=== PATIENT | female | born 1980 | race Caucasian/White ===

== ENCOUNTER → 2017-09-19 10:29 | Outpatient (POV) | payer OTHER, SELFPAY ==
[2017-09-19 11:53] LABS: Basophils % 0.4 % (0.1-2.0); Eosinophils # 0.1 K/mm3 (0.0-0.4); Eosinophils % 1.6 % (0.1-12.0); Hematocrit 45.4 % (37.0-47.0); Hemoglobin 14.8 g/dL (12.2-16.2); Lymphocytes # 1.7 K/mm3 (0.7-4.5); Lymphocytes % 22.2 K/mm3 (10-50); Mean Corpuscular HGB Conc 32.5 g/dL (31.8-35.4); Mean Corpuscular Hemoglobin 31.9 pg (27.0-31.2); Mean Corpuscular Volume 97.9 fl (81-99); Mean Platelet Volume 8.8 fl (7.4-10.4); Monocytes # 0.4 K/mm3 (0.1-1.0); Monocytes % 5.3 % (1.7-9.3); Neutrophils # 5.4 K/mm3 (1.8-7.8); Neutrophils % 70.4 % (37.0-80.0); Platelet Count 205 K/mm3 (142-424); Red Blood Count 4.63 M/mm3 (4.20-5.40); Red Cell Distribution Width 12.1 % (11.5-17.5); White Blood Count 7.7 K/mm3 (4.8-10.8)
[2017-09-19 12:56] LABS: Erythrocyte Sedimentation Rate 4 mm/hr (0-20)
[2017-09-19 14:03] LABS: Alanine Aminotransferase 21 U/L (12-78); Albumin Level 4.2 gm/dL (3.4-5.0); Albumin/Globulin Ratio 1.4 (1.1-1.8); Alkaline Phosphatase 58 U/L (46-116); Amylase 72 U/L (25-125); Anion Gap 12.5 mEq/L (5-15); Aspartate Amino Transferase 14 U/L (15-37); Bilirubin,Total 0.3 mg/dL (0.2-1.0); Blood Urea Nitrogen 7 mg/dL (7-18); Calcium 8.8 mg/dL (8.5-10.1); Carbon Dioxide 26 mmol/L (21.0-32.0); Chloride 103 mmol/L (98-107); Creatinine,Serum 0.65 mg/dL (0.55-1.02); Estimated Glomerular Filt Rate 104 ml/min (>60); Ferritin 55 ng/mL (8-388); GFR (African American) 126 ML/MIN (>60); Globulin 2.9 gm/dl (1.3-3.2); Glucose 104 mg/dL (74-106); Lipase 136 u/L (73-393); Potassium 4.5 mmoL/L (3.5-5.1); Sodium 137 mmol/L (136-145); Total Protein,Serum 7.1 gm/dL (6.4-8.2)
[2017-09-19 14:04] LABS: C-Reactive Protein < 0.2 mg/L (0.0-0.9)
[2017-09-20 08:23] LABS: Iron 69 ug/dL (27-159); UIBC 278 ug/dL (131-425)
[2017-09-21 18:18] LABS: Iron Saturation 20 % (15-55); Vitamin B12 241 pg/mL (232-1245); Vitamin D 25 Hydroxy 25.9 ng/mL (30.0-100.0)
== END ==
PROVIDERS: Family Provider Emergency Medicine; Visit Provider Nurse Practitioner Acute Care
DX: R19.7 Diarrhea, unspecified (principal); R10.9 Unspecified abdominal pain; R14.0 Abdominal distension (gaseous)
CPT/HCPCS: 36415; 80053; 82150; 82607; 82652; 82728; 83550; 83690; 85025; 85651; 86140

== ENCOUNTER → 2017-09-22 08:56 | Outpatient (CLI) | payer OTHER, SELFPAY ==
--- NOTE | 2017-09-22 09:01 | US_ITS ---
US abdomen limited: HISTORY: Vomiting and abdominal pain ITS.REASON: ABD PAIN, BLOATING ORDERING PHYSICIAN: Carley Diego PATIENT AGE: 36 years COMPARISON: None FINDINGS: PANCREAS: Unremarkable. No obvious mass or abnormal fluid collection. No ductal dilatation LIVER: No focal liver lesions demonstrated. Homogeneous echogenicity. No intrahepatic biliary ductal dilatation evident RIGHT KIDNEY: Unremarkable. Normal size and echogenicity. No hydronephrosis GALLBLADDER: No gallstones, gallbladder wall thickening, pericholecystic fluid, or biliary dilatation. IMPRESSION: Negative gallbladder/right upper quadrant ultrasound
== END ==
PROVIDERS: Family Provider Emergency Medicine; PCP Nurse Practitioner Acute Care; Visit Provider Nurse Practitioner Acute Care
DX: R10.9 Unspecified abdominal pain (principal); R14.0 Abdominal distension (gaseous)
CPT/HCPCS: 76705

== ENCOUNTER → 2018-01-18 14:19 | Outpatient (CLI) | payer OTHER, SELFPAY ==
[2018-01-18 14:49] LABS: Basophils % 0.5 % (0.1-2.0); Eosinophils # 0.3 K/mm3 (0.0-0.4); Eosinophils % 3.8 % (0.1-12.0); Hematocrit 46.6 % (37.0-47.0); Hemoglobin 14.7 g/dL (12.2-16.2); Lymphocytes # 1.7 K/mm3 (0.7-4.5); Lymphocytes % 21.5 K/mm3 (10-50); Mean Corpuscular HGB Conc 31.7 g/dL (31.8-35.4); Mean Corpuscular Hemoglobin 31.5 pg (27.0-31.2); Mean Corpuscular Volume 99.5 fl (81-99); Mean Platelet Volume 9.8 fl (7.4-10.4); Monocytes # 0.5 K/mm3 (0.1-1.0); Monocytes % 6.2 % (1.7-9.3); Neutrophils # 5.3 K/mm3 (1.8-7.8); Platelet Count 186 K/mm3 (142-424); Red Blood Count 4.68 M/mm3 (4.20-5.40); Red Cell Distribution Width 12.1 % (11.5-17.5); White Blood Count 7.9 K/mm3 (4.8-10.8)
[2018-01-18 15:58] LABS: Erythrocyte Sedimentation Rate 5 mm/hr (0-20)
[2018-01-18 17:07] LABS: Alanine Aminotransferase 20 U/L (12-78); Albumin Level 4.4 gm/dL (3.4-5.0); Albumin/Globulin Ratio 1.6 (1.1-1.8); Alkaline Phosphatase 63 U/L (46-116); Anion Gap 14.3 mEq/L (5-15); Aspartate Amino Transferase 13 U/L (15-37); Bilirubin,Total 0.6 mg/dL (0.2-1.0); Blood Urea Nitrogen 9 mg/dL (7-18); Calcium 9.1 mg/dL (8.5-10.1); Carbon Dioxide 27 mmol/L (21.0-32.0); Chloride 103 mmol/L (98-107); Creatinine,Serum 0.62 mg/dL (0.55-1.02); Estimated Glomerular Filt Rate 110 ml/min (>60); Free Thyroxine Index 3.3 ug/dL (5.93-13.13); GFR (African American) 133 ML/MIN (>60); Globulin 2.7 gm/dl (1.3-3.2); Glucose 89 mg/dL (74-106); Potassium 4.3 mmoL/L (3.5-5.1); Sodium 140 mmol/L (136-145); T4 (Thyroxine) 9.4 ug/dl (4.7-13.3); Thyroid Stimulating Hormone 0.37 uIU/ml (0.358-3.740); Total Protein,Serum 7.1 gm/dL (6.4-8.2); Triiodothryronine (T3) Uptake 35 % (31-39); Uric Acid 2.4 mg/dL (2.6-7.2)
[2018-01-18 17:08] LABS: C-Reactive Protein < 0.2 mg/L (0.0-0.9)
[2018-01-20 11:21] LABS: Anti-Centromere B Antibodies <0.2 AI (0.0-0.9); Anti-Jo-1 <0.2 AI (0.0-0.9); Anti-Smith Antibody <0.2 AI (0.0-0.9); Antichromatin Antibodies <0.2 AI (0.0-0.9); Antiscleroderma-70 Antibodies <0.2 AI (0.0-0.9); RNP Antibodies 0.6 AI (0.0-0.9); Sjogren's Anti-SS-A <0.2 AI (0.0-0.9); Sjogren's Anti-SS-B <0.2 AI (0.0-0.9)
[2018-01-20 14:16] LABS: PTT-LA 33.3 sec (0.0-51.9)
[2018-01-20 15:46] LABS: Anti-DNA (DS) Ab Qn 1 IU/mL (0-9); RA Latex Turbid. <10.0 IU/mL (0.0-13.9); dRVVT 34.1 sec (0.0-47.0)
[2018-01-22 05:04] LABS: Anti-Cyclic Citrullinated Pept 6 units (0-19)
[2018-01-24 10:02] LABS: Antinuclear Antibodies, IFA Negative (.); Lupus Reflex Interpretation Comment: (.)
== END ==
PROVIDERS: Visit Provider Physician Assistant
DX: R50.9 Fever, unspecified (principal); M25.50 Pain in unspecified joint
CPT/HCPCS: 36415; 80053; 84436; 84443; 84479; 84550; 85025; 85613; 85651; 86038; 86140; 86200; 86431

== ENCOUNTER → 2018-08-22 12:45 | Outpatient (CLI) | payer OTHER, SELFPAY ==
--- NOTE | 2018-08-22 | US_ITS ---
MM Dig mamm BI DX w/CAD, US breast RT complete, US breast LT complete THESE REPORTS ARE DELAYED WAITING ON OUTSIDE FILMS WHICH WERE SENT FOR FOR COMPARISON AND ARE NOT MADE AT THE TIME OF THIS READING. INDICATION: Palpable nodule in the 7:00 region of the right breast ORDERING PHYSICIAN: Arron Calero MD PATIENT AGE: 37 years COMPARISON: None TECHNIQUE: Bilateral diagnostic mammogram with bilateral breast ultrasound FINDINGS: There is very dense fiber glandular tissue which decreases the sensitivity of mammography. Right breast: Dense fibroglandular tissue. A marker is placed along the 7:00 region of the right breast where there is reported palpable abnormality. No discrete mammographic abnormality is evident. No malignant appearing microcalcification. Faint nodularity is noted in the inferior aspect of the right breast on the MLO view at 8 mm. This however does appear to compress out on the spot compression view. Right breast ultrasound: There is an 8 x 8 mm well circumscribed hypoechoic nodule in the 7:00 region of the right breast corresponding to the palpable abnormality. This does contain some internal echoes. This is parallel to the chest wall and there is enhanced through transmission of sound. This may represent a fibroadenoma. Left breast: Asymmetric density is present in the upper portion of the left breast. This does not completely compress out on the spot compression view but could very well represent fibroglandular tissue not readily apparent on the cc view or X CC view. Old films were requested to compare this area but have not been made available. Left breast ultrasound: There is an ill-defined hypoechoic area at 2:00 6 x 3 mm. This is not well demonstrated in both the transverse and longitudinal dimension and could only represent fibroglandular tissue. Additional similar-appearing areas noted at 10:00 5 x 4 mm and may be due to, a cystic region versus fibroglandular tissue. No malignant appearing mass is evident. There are small nodes in the axilla. IMPRESSION: 8mm well circumscribed hypoechoic nodule at 7:00 and may represent a fibroadenoma. Ultrasound-guided core biopsy suggested for confirmation. This is probably too superficial for mammotome biopsy only 2 mm deep to the skin surface Asymmetric upper aspect of the left breast which may be due to fibroglandular tissue. Strongly recommend patient obtain old films for comparison and an addendum may be given. If old films are not available then would recommend a 6 month follow-up. Indeterminate sonographic areas also noted probably due to fibroglandular tissue. Suggest 6 month follow-up BI-RADS Category: 4 Suspicious Abnormality-Biopsy Considered right breast, low suspicion for malignancy. BI-RADS Category 3, probably benign findings left breast Recommendations: 1. Ultrasound-guided core biopsy of the right breast. 2. Obtain old films for comparison to the left breast. 3. Six-month follow-up mammogram and ultrasound of the left breast (A letter has been sent to the patient regarding results of the study.)
== END ==
PROVIDERS: PCP Physician Assistant; Visit Provider Nurse Practitioner Obstetrics & Gynecology
DX: N60.19 Diffuse cystic mastopathy of unspecified breast (principal); N64.4 Mastodynia
CPT/HCPCS: 76641; 77066

== ENCOUNTER → 2018-09-06 12:20 | Outpatient (CLI) | payer OTHER, SELFPAY ==
--- NOTE | 2018-09-06 | US_ITS ---
FNA w guidance, US breast RT complete HISTORY: Abnormal right breast ultrasound showing a nodule at 7:00 region. ITS.REASON: US Guided Core Bx Right Breast ORDERING PHYSICIAN: Arron Calero MD PATIENT AGE: 37 years COMPARISON: 08/22/2018 Prebiopsy ultrasound: Ultrasound performed of the right breast confirms or cystic presence of a oval nodule in the subcutaneous region at 7:00 measuring 7 x 9 x 4 mm.. Biopsy planning was performed and appropriate area marked for needle insertion. TECHNIQUE: Following obtaining informed consent, using aseptic technique and local anesthesia with buffered lidocaine, fine-needle aspiration was performed of the nodule of interest using sonographic guidance. 3 passes were made into the nodule . 2 passes were made with a 21-gauge needle and one pass was made with a 25-gauge needle. Specimen was given to cytology. The patient tolerated the procedure well without evidence of immediate complications and left the ultrasound suite in stable condition. CYTOLOGY:Pending IMPRESSION: Uneventful ultrasound-guided fine-needle aspiration of right breast nodule. Cytology is pending
== END ==
PROVIDERS: PCP Physician Assistant; Visit Provider Nurse Practitioner Obstetrics & Gynecology
DX: N60.19 Diffuse cystic mastopathy of unspecified breast (principal); N64.4 Mastodynia
CPT/HCPCS: 10005; 76641

== ENCOUNTER → 2019-03-12 12:43 | Outpatient (CLI) | payer OTHER, SELFPAY ==
--- NOTE | 2019-03-12 12:44 | MM_ITS ---
MM Dig mamm BI DX w/CAD, US breast RT complete Ultrasound left complete INDICATION: 6 month follow-up abnormal mammogram and ultrasound ORDERING PHYSICIAN: Arron Calero MD PATIENT AGE: 38 years COMPARISON: 08/22/2018, 01/03/2015, 09/06/2018 TECHNIQUE: Routine images obtained with spot compression views and bilateral breast ultrasound FINDINGS: There is very dense fibroglandular tissue which decreases the sensitivity of mammography. Right breast: No discrete mass or malignant appearing microcalcification. Right breast ultrasound: Hypoechoic nodule at 6:00 with through transmission of sound suggesting a small cyst. No change in the solid appearing 8 x 4 mm nodule in the subcutaneous region at 7:00. Fine-needle aspiration was performed of this nodule showing his represent a fibroadenoma. This has a somewhat lobular contour along its inferior margin but could be related to post biopsy changes. Continued six-month sonographic follow-up is suggested. Left breast: There is asymmetric density in the superior aspect of left breast in the axillary region. Asymmetry inferior left breast. No malignant appearing microcalcifications. Left breast ultrasound: Nonspecific hypoechoic area at 10:00 near the nipple at 4 mm with some enhanced through transmission of sound may be related to some fibrocystic change and appear stable.. Previously noted nodularity in 2:00 not readily demonstrated on today's exam. IMPRESSION: Benign findings. No convincing evidence of malignancy. There is very dense fibroglandular tissue which decreases the sensitivity of mammography and correlation with physical exam is paramount. The 8 x 4 mm nodule at 7:00 is once again noted in the right breast was some nodularity along the inferior margin which could be due to postbiopsy changes. This was previously biopsied with FNA results of fibroadenoma. Would recommend a 6 month sonographic follow-up to confirm stability of the nodularity inferiorly. No change in the left breast. Suggest continued six-month mammographic and sonographic follow-up to confirm one-year stability BI-RADS Category: 3 Probably Benign Finding Short Term Follow-up RECOMMENDED FOLLOW-UP: 6M - 6 MONTH FOLLOW-UP (A letter has been sent to the patient regarding results of the study.)
== END ==
PROVIDERS: PCP Physician Assistant; Visit Provider Nurse Practitioner Obstetrics & Gynecology
DX: R92.8 Other abnormal and inconclusive findings on diagnostic imaging of breast (principal)
CPT/HCPCS: 77066

== ENCOUNTER → 2019-03-16 08:54 | Outpatient (CLI) | payer OTHER, SELFPAY ==
--- NOTE | 2019-03-16 09:01 | US_ITS ---
US breast LT complete COMPARISON: Ultrasound left breast 08/22/2018 HISTORY: Markedly dense breast parenchyma on mammogram with question of asymmetric density TECHNIQUE: Ultrasound survey left breast FINDINGS: There is markedly prominent heterogenic echogenicity of the breast parenchyma throughout. A couple of small and questionable areas of asymmetric glandular tissue are seen at the 2:00 position near the nipple less than a centimeter in size and there are similar area of decreased echogenicity is seen 10:00 position of the nipple. There is no suspicious cystic or solid lesion and there are no findings to suggest architectural distortion. Again noted is a normal-appearing node in the axilla. IMPRESSION: Heterogenic echogenicity consistent patient's known markedly dense and heterogenic parenchymal pattern and recommend patient continue with yearly screening mammography
== END ==
PROVIDERS: PCP Pediatrics; Visit Provider Nurse Practitioner Obstetrics & Gynecology
DX: R92.8 Other abnormal and inconclusive findings on diagnostic imaging of breast (principal)
CPT/HCPCS: 76641

== ENCOUNTER → 2019-03-23 10:50 | Outpatient (CLI) | payer OTHER, SELFPAY | PROVIDERS: PCP Pediatrics; Visit Provider Nurse Practitioner Obstetrics & Gynecology | DX: R92.8 Other abnormal and inconclusive findings on diagnostic imaging of breast (principal) | CPT/HCPCS: 76641 ==

== ENCOUNTER → 2019-09-13 12:52 | Outpatient (CLI) | payer OTHER, SELFPAY ==
--- NOTE | 2019-09-13 12:52 | US_ITS ---
PROCEDURE: MM DIG MAMM BI DX W/CAD CLINICAL INDICATION: 6 mo follow up BI-RADS breast densities follow-up abnormal mammogram, follow-up breast nodules COMPARISON: DXBI MM Dig mamm BI DX w/CAD from 08/22/2018 FNAWGUS FNA w guidance from 09/06/2018 MM DIG MAMM BI DX W/CAD from 03/12/2019 BREASTLT US breast LT complete from 03/16/2019 US BREAST RT COMPLETE from 03/23/2019 US BREAST LT COMPLETE from 09/13/2019 US BREAST RT COMPLETE from 09/13/2019 TECHNIQUE: Standard CC and MLO images and 3D Tomosynthesis was obtained. R2 CAD reviewed. Bilateral breast ultrasound FINDINGS: There is very dense fibroglandular tissue bilaterally which may obscure underlying breast lesions. Therefore, correlation with physical exam is extremely important. No discrete mass noted on the mammogram. Patient reports a palpable nodule in the inferior aspect of the right breast. Right breast ultrasound: Multiple cyst before. There is a lobular hypoechoic nodule measuring 9 x 4 mm at 7 o'clock which is not significantly changed. This does show enhanced through transmission of sound with some underlying echoes. This may represent complicated cyst or fibroadenoma. The old reports are not available for review but have been requested multiple times.. This nodule at 7 o'clock was sampled with sonographic guidance and was remarkable for a fibroadenoma. There is a 8 mm cyst in the retroareolar region. This was not previously demonstrated Left breast ultrasound: No cystic or solid nodules evident. There is dense heterogeneous echogenic tissue in both breast IMPRESSION: BI-RAD Category: 2 Benign Finding(s) FOLLOW-UP: 1YR 1 Year Follow-up the (A letter has been sent to the patient regarding results of the study.) Dictated by: Sanchez Doherty MD 09/20/2019 18:16 Electronically signed by Sanchez Doherty MD in [place] 09/20/2019 18:16
== END ==
PROVIDERS: PCP Pediatrics; Visit Provider Nurse Practitioner Obstetrics & Gynecology
DX: R92.8 Other abnormal and inconclusive findings on diagnostic imaging of breast (principal)
CPT/HCPCS: 76641; 77062; 77066; G0279

== ENCOUNTER → 2019-10-17 12:14 | Outpatient (CLI) | payer OTHER, SELFPAY ==
--- NOTE | 2019-10-17 12:19 | XR_ITS ---
PROCEDURE: XR SHOULDER RT MIN 2V CLINICAL INDICATION: right shoulder pain COMPARISON: XR SHOULDER RT MIN 2V from 09/12/2019 FINDINGS: No acute fracture or dislocation. There is slight superior elevation of the humeral which may be seen with rotator cuff injuries. There is a faint lucency along the inferior aspect of the glenoid not significantly changed and could represent ununited ossification center or an old fracture. IMPRESSION: No change possible nondisplaced avulsion fracture along the inferior aspect of the glenoid. Slight high writing humeral head Dictated by: Sanchez Doherty MD 10/17/2019 17:59 Electronically signed by Sanchez Doherty MD in [place] 10/17/2019 17:59
--- NOTE | 2019-10-17 12:19 | XR_ITS ---
PROCEDURE: XR HAND RT MIN 3V CLINICAL INDICATION: right hand pain; evaluate for a fracture COMPARISON: XR HAND RT 2V from 09/12/2019 FINDINGS: No fracture or dislocation. No lytic or blastic change. There is normal mineralization. The joint spaces are well-preserved. No significant degenerative/arthritic changes. No erosive changes evident. Other findings:None. IMPRESSION: No acute findings. Dictated by: Sanchez Doherty MD 10/17/2019 17:57 Electronically signed by Sanchez Doherty MD in [place] 10/17/2019 17:57
--- NOTE | 2019-10-17 12:19 | XR_ITS ---
PROCEDURE: XR ELBOW RT MIN 3V CLINICAL INDICATION: right elbow pain COMPARISON: XR ELBOW RT 2V from 09/12/2019 FINDINGS: No fracture or dislocation. No lytic or blastic change. There is normal mineralization. The joint spaces are well-preserved. No significant degenerative/arthritic changes. No erosive changes evident. Other findings:None. IMPRESSION: No acute findings. Dictated by: Sanchez Doherty MD 10/17/2019 18:00 Electronically signed by Sanchez Doherty MD in [place] 10/17/2019 18:00
== END ==
PROVIDERS: PCP Pediatrics; Visit Provider Orthopaedic Surgery
DX: M25.521 Pain in right elbow (principal); M25.511 Pain in right shoulder; M79.641 Pain in right hand
CPT/HCPCS: 73030; 73080; 73130

== ENCOUNTER 2019-10-18 10:11 | Outpatient (RCR) | payer OTHER, SELFPAY | END 2019-10-18 14:36 | disposition home or self-care (01) | LOC: OT 10:11 | PROVIDERS: Visit Provider Orthopaedic Surgery | DX: M25.521 Pain in right elbow (principal); M77.11 Lateral epicondylitis, right elbow | CPT/HCPCS: 97760 ==

== ENCOUNTER → 2019-11-02 12:35 | Outpatient (CLI) | payer OTHER, SELFPAY ==
--- NOTE | 2019-11-02 12:35 | MR_ITS ---
PROCEDURE: MR SHOULDER RT WO CON CLINICAL INDICATION: Evaluate for rotator cuff tear Right shoulder pain, injury with pain with grinding and popping COMPARISON: XR SHOULDER RT MIN 2V from 10/17/2019 TECHNIQUE: Routine multiplanar multi echo sequences are performed without gadolinium enhancement. FINDINGS: There is no evidence of rotator cuff tear. The supraspinatus, infraspinatus, teres minor, and subscapularis tendons show no evidence of tear. There is slight increased T2 signal of the supraspinatus tendon which could be due to tendinopathy/tendinosis. The subacromial space is slightly narrowed at 5 mm. There is minimal superior location of the humeral head. There is a small amount of fluid within the shoulder joint. No obvious labral tear. The bicipital tendon is in place IMPRESSION: Mild tendinopathy/tendinosis of the supraspinatus tendon with mild subacromial stenosis otherwise negative. No evidence of rotator cuff tear. Dictated by: Sanchez Doherty MD 11/06/2019 09:04 Electronically signed by Sanchez Doherty MD in [place] 11/06/2019 09:04
== END ==
PROVIDERS: PCP Pediatrics; Visit Provider Orthopaedic Surgery
DX: M25.511 Pain in right shoulder (principal)
CPT/HCPCS: 73221

== ENCOUNTER → 2019-11-12 11:14 | Outpatient (POV) | payer OTHER, SELFPAY | PROVIDERS: PCP Pediatrics; Visit Provider Specialist | DX: M79.601 Pain in right arm (principal); R20.2 Paresthesia of skin | CPT/HCPCS: 95886; 95908 ==

== ENCOUNTER → 2020-05-03 10:23 | Outpatient (CLI) | payer OTHER, SELFPAY ==
[2020-05-03 14:21] LABS: Coronavirus 19 IgG Antibody Negative (Negative); Coronavirus 19 IgM Antibody Negative (Negative)
== END ==
PROVIDERS: Visit Provider Internal Medicine Gastroenterology
DX: Z01.818 Encounter for other preprocedural examination (principal); Z12.11 Encounter for screening for malignant neoplasm of colon
CPT/HCPCS: 36415; 86328

== ENCOUNTER 2020-05-05 07:31 | Day surgery (SDC) | payer OTHER, SELFPAY ==
[2020-05-02 11:01] VITALS: BMI 17.3
[2020-05-05] VITALS (7 sets, daily range): BP systolic 90–127; BP diastolic 56–86; PULSE 62–102; RESP 16–18; TEMP 36.2–36.6; O2SAT 97–100
--- NOTE | 2020-05-05 08:41 | HMH.PROC ---
[facility] Procedure Note Procedure Note:: Colonoscopy Procedure Report: Colonoscopy with cold biopsies and monopolar ablation/coagulation of internal hemorrhoids to destruction Endoscopist: Harvey Willingham II, MD Referring physician: Shamar Arellano MD Date of Procedure: May 05, 2020 Equipment: Olympus 180 variable stiffness pediatric colonoscope Sedation: MAC sedation Indication: Mrs. Perdue is a 39-year-old female with recent bright red rectal bleeding that occurred Tuesday and filled the commode. Later in the day she had some tightening in the left abdomen (left upper). The patient reports no abdominal pain, weight loss or change in her bowel habits. The patient's maternal uncle had colon cancer at at the age of 34. The patient did have a colonoscopy at age 33 and had 2 polyps (tubular adenoma x1/hyperplastic polyp x1) removed. The patient did have a thrombosed external hemorrhoid in 2018 and had some hemorrhoid tissue removed/hemorrhoidectomy performed by Dr. Reno Oliver. Procedure: Prior to the procedure, a history and physical exam was performed, and patient's medications and allergies were reviewed. The risks, benefits and alternatives of the sedation and procedure were discussed with the patient. All questions were answered and informed consent was obtained. The patient was brought to the procedure room. Patient identification and proposed procedure were verified by the physician and the nurse. The patient was placed in a left lateral decubitus position and the scope was passed under direct vision. Throughout the procedure, the patient's blood pressure, pulse, and oxygen saturations were monitored continuously. The colonoscopy was accomplished without difficulty. The patient tolerated the procedure well. Findings: On digital rectal examination there was normal rectal tone. There were no external hemorrhoids. The colonoscope was introduced through the anal canal to the rectum and advanced to the cecum. The ileocecal valve and appendiceal orifice were identified. The scope was advanced a short distance into the ileum which appeared grossly normal. The scope was then withdrawn into the colon. The cecum, ascending and transverse colon were normal. There were 3 diminutive 2 mm polyps in the descending and sigmoid colon that were removed via cold biopsy. The remainder of the rectosigmoid and rectum were normal. There were no other mucosal abnormalities identified. Upon retroflexion within the rectum there were grade 1-2 internal hemorrhoids.these hemorrhoids were ablated/coagulated (3 columns) with monopolar ablation to destruction. The preparation was excellent throughout with [place] Preparation Score of 9. The cecal time was 12 minutes. Impression: 1. Diminutive hyperplastic appearing colon polyps x3 (2 mm) 2. Grade 1-2 internal hemorrhoids status post monopolar ablation/coagulation Plan: I would encourage the patient to remain on a bulking fiber supplement. I will follow-up the polyp histology and recommend repeat screening/surveillance colonoscopy in 5 years based upon her family history and prior adenomatous polyp at a young age.
--- NOTE | 2020-05-05 08:43 | HMH.ANESCL ---
[facility] Anesthesia Checklist - Patient Identification Patient Identification: Arm Band, Verbal (Name & ) - Structural Data Admitted From: Home Planned Operative Procedure/s: Colonoscopy Consent for Planned Operative Procedure(s) Verified: Yes Verified Documents: Surgical Consent, History and Physical - NPO Status Verified Time NPO: 00:00 - Chart Verification Results Verified: None - Additional verifications Patient : No Anesthesia Reactions: No - Airway Assessment C-Spine Mobility Assessed: Yes TMJ Mobility Assessed: Yes Dentition: Good Dentition - Neurological Assessment Level of Consciousness: Awake, Alert, Appropriate, Follows Commands Hx Seizures: No Numbness or tingling in extremities: No - Anesthesia Plan Anesthesia Risk discussed: Yes Anesthesia Plan: Verified ASA Class: II Anesthesia Type: MAC [facility] History I have reviewed the patient's past medical history: Yes Medical History: Reports:: Anxiety, Depression Denies:: Cancer, Diabetes Mellitus Type 1, Diabetes Mellitus Type 2, Hypertension, Internal Pacemaker, MRSA, Seizures *Have you ever received a pneumonia vaccine?: No *Have you received a flu vaccine this season?: No Anesthesia experience/problems:: No complications Other Surgeries: Yes: Appendectomy, Hysterectomy-Partial, Tubal Ligation. No: Pacemaker Amputation: No Fractures: Yes (elbow) - *Social History Last grade of school completed: Advanced degree Smoking Status: Current every day smoker Tobacco Type: cigarettes # Packs/Day (cigarettes): 1 Alcohol Intake: never Substance Use Type: denies use *Occupational Status:: employed Housing: house Household Members: spouse, family *Travel in the last 8 weeks: None - Psychiatric History Pschychiatric History:: Reports:: Anxiety, Depression Family Hx:: Thyroid Disorder
== END 2020-05-05 09:45 | disposition home or self-care (01) ==
LOC: OUTP 07:33
PROVIDERS: PCP Pediatrics; Visit Provider Internal Medicine Gastroenterology
PROC: 0DJD8ZZ Inspection of Lower Intestinal Tract, Via Natural or Artificial Opening Endoscopic (ICD-10-PCS; CPT 45378; principal; 2020-05-05 08:30)
DX: K63.5 Polyp of colon (principal); K64.0 First degree hemorrhoids; Z87.19 Personal history of other diseases of the digestive system; K62.5 Hemorrhage of anus and rectum; F41.9 Anxiety disorder, unspecified; F32.9 Major depressive disorder, single episode, unspecified; Z90.49 Acquired absence of other specified parts of digestive tract; Z90.711 Acquired absence of uterus with remaining cervical stump; Z72.0 Tobacco use; Z79.899 Other long term (current) drug therapy
CPT/HCPCS: 45385; 46930

== ENCOUNTER → 2020-05-06 16:19 | Outpatient (CLI) | payer OTHER, SELFPAY ==
--- NOTE | 2020-05-06 16:20 | MR_ITS ---
PROCEDURE: MR ELBOW RT WO CON CLINICAL INDICATION: chronic pain/ tennis elbow RT elbow PT HAD A JERKING INJURY TO RT ELBOW JUL 2019 WITH CONTINUED PAIN AND LIMITED RANGE OF MOTION. PRIOR RT ELBOW XRAY DONE 10/17/19 COMPARISON: CR XR ELBOW RT MIN 3V from 10/17/2019 TECHNIQUE: Routine multiplanar multi echo sequences are performed without gadolinium enhancement. FINDINGS: No obvious fracture or dislocation. No bone marrow edema apparent. Biceps tendon has an unremarkable appearance. The ulnar collateral and lateral collateral ligaments appear intact as does the annular ligament. No significant joint effusion or displaced fat pad. There is increased T2 signal at the common extensor tendon consistent with lateral epicondylitis. The tendon does appear intact. The common flexor tendon has an unremarkable appearance. The triceps and biceps tendon appear unremarkable. IMPRESSION: Lateral epicondylitis Dictated by: Sanchez Doherty MD 05/08/2020 14:15 Sanchez Doherty MD in [place] 05/08/2020 14:15
== END ==
PROVIDERS: PCP Pediatrics; Visit Provider Orthopaedic Surgery
DX: M25.521 Pain in right elbow (principal); G89.29 Other chronic pain
CPT/HCPCS: 73221

== ENCOUNTER 2020-06-28 14:10 | Emergency (ER) | payer OTHER, SELFPAY ==
[2020-06-28 14:41] VITALS: BP 120/77; PULSE 68; RESP 18; TEMP 36.6; O2SAT 100; BMI 16.9
--- NOTE | 2020-06-28 14:55 | HMH.EDUTC ---
[facility] Disposition Clinical Impression: Laceration Disposition: Home, Self-Care Condition on Discharge: Good Instructions: DI for Laceration Repair -- Simple, DI for Laceration Repair -- Finger Additional Instructions: Suture instructions: You have required stitches today. Please read the following instructions so you know how to care for them: 1. Keep wound area dry for the first 24 hours. 2 May clean gently with mild soap and water, after 48 hours to prevent crusting over suture knots. 3. You may shower if your provider gives permission but do not take a bath until the skin is healed.. 4. Never leave a wet dressing or Band-Aid on your stitches as this allows bacteria to reach the area and may cause infection. Band-aids can cause the wound to sweat and not recommended to wear for long periods of time Watch for signs of infection: Increasing redness, tenderness or warmth around the suture site Unusual swelling around the site Appearance of pus around each suture or any red streaks Fever If you develop any of the above signs or symptoms of infection, Follow up with Family Physician immediately 5. Suture removal in _10-12___days 6. Return to [facility] or follow up with family doctor for removal. This can be done by any medical provider during regular hours on Tuesday through Tuesday, by appointment. Prescriptions: Amoxicillin/Potassium Clav [Augmentin 500mg tab] 500 mg PO BID 5 Days #10 tab Transmission Status: Pending to [facility] Referrals: Shamar Arellano JR, MD [Primary Care Provider] - As needed Time of Disposition: 15:02 Medical Decision Making - Macario Inquiry Pt receiving controlled substance: No Macario was queried for this patient: No Vital Signs: 06/28/20 14:41 Temperature 97.9 F Temperature Source Oral Pulse Rate [Radial] 68 Respiratory Rate 18 Blood Pressure [Right Arm] 120/77 Blood Pressure Mean [Right Arm] 91 Blood Pressure Source [Right Arm] Automatic Cuff Blood Pressure Position [Right Arm] Sitting 02 Sat by Pulse Oximetry 100 Oxygen Delivery Method Room Air [facility] HPI - General Stated complaint: middle finger left hand cut Time Seen by Provider: 06/28/20 14:45 Mode of Arrival: Ambulatory Source of Information: Patient Limitations: No Limitations Description of Symptoms (Recalled from Triage Doc. by RN): lac to finger HEENT Symptoms (Recalled from RN notes): No Resp Symptoms (Recalled from RN notes): No Skin Symptoms (Recalled from RN notes): Yes MS Symptoms (Recalled from RN notes): No Functional Status (Recalled from RN notes): wnl - History of Present Illness Provider Complaint: Patient state that she cut her left middle finger tip with a set of prunning merrill States that cut is small but she was having a hard time getting the bleeding to stop so she come in States that last tetatnus was about 2 yrs ago - Related Data Home Medications Medication Instructions Recorded Confirmed venlafaxine 75 mg capsule,extended 75 mg PO DAILY 05/01/19 05/14/20 release 24 hr Ergocalciferol (Vitamin D2) 50,000 units PO WEEKLY 05/02/20 05/14/20 [Drisdol 50,000 units (1.25mg) capsule] Previous Rx's Medication Instructions Recorded Amoxicillin/Potassium Clav 500 mg PO BID 5 Days #10 tab 06/28/20 [Augmentin 500mg tab] Allergies Allergy/AdvReac Type Severity Reaction Status Date / Time No Known Allergies Allergy Verified 05/14/20 14:31 - Worker's Comp Is this a Worker's Comp case?: No [facility] History - Hepatitis A Screen Drug use history?: No High risk sexual behaviors?: No History of sexually transmitted infection?: No Currently employed?: No Childcare worker?: No Do you have indoor plumbing?: Yes Do you have electricity?: Yes Attestation statement:: This patient has been screened for Hepatitis A risk factors. I have reviewed the patient's past medical history: Yes Medical History: Reports:: Anxiety, Depression Denies:: Cancer, Diab
[2020-06-28 15:12] VITALS: BP 120/77; PULSE 68; RESP 18; TEMP 36.6; O2SAT 100
== END 2020-06-28 15:14 | disposition home or self-care (01) ==
PROVIDERS: Emergency Provider Nurse Practitioner; PCP Pediatrics
DX: S61.412A Laceration without foreign body of left hand, initial encounter (principal); W26.8XXA Contact with other sharp object(s), not elsewhere classified, initial encounter
CPT/HCPCS: 12001; 99201

== ENCOUNTER 2020-09-08 15:18 | Emergency (ER) | payer OTHER, SELFPAY ==
[2020-09-08 15:30] VITALS: BP 101/65; PULSE 91; RESP 14; TEMP 36.8; O2SAT 100; BMI 16.7
--- NOTE | 2020-09-08 15:44 | HMH.EDUTC ---
[facility] [place] Clinical Impression: Exposure to COVID-19 virus Foreign body in left ear Qualifiers: Encounter type: initial encounter Qualified Code(s): T16.2XXA - Foreign body in left ear, initial encounter Disposition: Home, Self-Care Condition on Discharge: Good Instructions: DI for Removal of Foreign Body From Ear, Preventing the Spread of Coronavirus Discharge Instructions Additional Instructions: Drink plenty of fluids. Take tylenol for pain or fever. Return if you begin to have difficulty breathing. Follow up with your regular doctor. GO TO THE ER FOR ANY WORSENING SYMPTOMS If you continue to have left ear pain, please follow up with your primary care physician or follow up here. Referrals: Shamar Arellano JR, MD [Primary Care Provider] - Time of Disposition: 16:02 Medical Decision Making - Medical Records Medical records reviewed: No: I reviewed the patient's medical records. - Macario Inquiry Pt receiving controlled substance: No Vital Signs: 09/08/20 15:30 09/08/20 15:52 Temperature 98.2 F 98.2 F Temperature Source Oral Pulse Rate 91 H Pulse Rate [Right Brachial] 91 H Respiratory Rate 14 14 Blood Pressure 101/65 L Blood Pressure [Right Arm] 101/65 L Blood Pressure Mean [Right Arm] 77 Blood Pressure Source [Right Arm] Automatic Cuff Blood Pressure Position [Right Arm] Sitting 02 Sat by Pulse Oximetry 100 Oxygen Delivery Method Room Air Orders (Tests/Meds): ORDERS Category Date Time Status Covid-19 Nasal PCR Sendout P&C Routine Lab 09/08/20 15:30 Received [facility] [place] HPI - General Stated complaint: covid test Time Seen by Provider: 09/08/20 15:44 - History of Present Illness Provider Complaint: She states that she has been exposed to covid-19 in her home. She denies any symptoms except that she has been having some left ear pain on and off for the past few days. - Related Data Home Medications Medication Instructions Recorded Confirmed venlafaxine 75 mg capsule,extended 75 mg PO DAILY 05/01/19 09/02/20 release 24 hr Ergocalciferol (Vitamin D2) 50,000 units PO WEEKLY 05/02/20 09/02/20 [Drisdol 50,000 units (1.25mg) capsule] Previous Rx's Medication Instructions Recorded Amoxicillin/Potassium Clav 500 mg PO BID 5 Days #10 tab 11/14/20 [Augmentin 500mg tab] Allergies Allergy/AdvReac Type Severity Reaction Status Date / Time No Known Allergies Allergy Verified 09/02/20 09:44 [facility] History - Hepatitis A Screen Attestation statement:: This patient has been screened for Hepatitis A risk factors. I have reviewed the patient's past medical history: Yes Medical History: Reports:: Anxiety, Depression Denies:: Cancer, Diabetes Mellitus Type 1, Diabetes Mellitus Type 2, Hypertension, Internal Pacemaker, MRSA, Seizures Other Surgeries: Yes: Appendectomy, Hysterectomy-Partial, Tubal Ligation. No: Pacemaker Amputation: No Fractures: Yes (elbow) Comment: autoimmune disease - Social History Smoking Status: Current every day smoker Tobacco Type: cigarettes # Packs/Day (cigarettes): 1 Alcohol Intake: never Substance Use Type: denies use Occupational Status: employed Housing: house Household Members: spouse, family - Psychiatric History Pschychiatric History:: Reports:: Anxiety, Depression Family Hx:: Thyroid Disorder Comment: ROS Obtained: Yes All systems reviewed & no additional complaints - Constitutional Constitutional: Reports system reviewed and no additional complaints, except as docu - Eyes Eyes: Reports system reviewed and no additional complaints, except as docu - ENT Ears, Nose, Mouth, and Throat: Reports as per HPI, Reports otalgia - Cardiovascular Cardiovascular: Denies chest pain - Respiratory Respiratory: Denies chest congestion, Denies cough Physical Exam - General General appearance: alert, in no apparent distress - Head Head exam: atraumatic, normocephalic, normal inspect
[2020-09-08 15:52] VITALS: BP 101/65; PULSE 91; RESP 14; TEMP 36.8; O2SAT 100
[2020-09-10 11:54] LABS: Covid-19 Nasal PCR Sendout P&C Negative
== END 2020-09-08 16:10 | disposition home or self-care (01) ==
PROVIDERS: Emergency Provider Nurse Practitioner Family; PCP Pediatrics
DX: Z20.822 Contact with and (suspected) exposure to COVID-19 (principal); T16.2XXA Foreign body in left ear, initial encounter; F41.8 Other specified anxiety disorders; F17.210 Nicotine dependence, cigarettes, uncomplicated
CPT/HCPCS: 69200; 99202; G0463; U0004

== ENCOUNTER → 2020-09-25 11:13 | Outpatient (CLI) | payer OTHER, SELFPAY | PROVIDERS: PCP Pediatrics; Visit Provider Orthopaedic Surgery | DX: Z01.818 Encounter for other preprocedural examination (principal); Z20.822 Contact with and (suspected) exposure to COVID-19; M25.529 Pain in unspecified elbow | CPT/HCPCS: U0003 ==

== ENCOUNTER 2020-10-12 21:53 | Emergency (ER) | payer OTHER, SELFPAY ==
[2020-10-12 22:01] VITALS: BP 105/42; PULSE 89; RESP 15; TEMP 36.7; O2SAT 99; BMI 15.8
--- NOTE | 2020-10-12 22:43 | HMH.EDGENADL ---
ED Disposition Clinical Impression: Headache Qualifiers: Headache type: unspecified Headache chronicity pattern: unspecified pattern Intractability: not intractable Qualified Code(s): R51.9 - Headache, unspecified Disposition: Home, Self-Care Condition on Discharge: Fair Instructions: DI for Headache Additional Instructions: You have been evaluated for headache, possibly due to recent anesthesia and procedure. Please take medications as prescribed. Try to eat a bland diet. Avoid headache triggers. Follow-up with your primary care doctor. Return to the emergency department for any new or worsening symptoms. Referrals: Shamar Arellano JR, MD [Primary Care Provider] - Time of Disposition: 00:24 - Critical Care Critical Care Time: No Attestation: On 10/12/20, the high probability of a clinically significant, sudden or life threatening deterioration of the following system(s) required my full and direct attention, intervention and personal management. The time I documented below is in addition to time spent performing reported procedures but includes the following listed in this critical care notation. Medical Decision Making - Medical Records Medical records reviewed: Yes: I reviewed the patient's medical records. - Macario Inquiry Pt receiving controlled substance: No Vital Signs: 10/12/20 22:01 Temperature 98.1 F Temperature Source Temporal Artery Scan Pulse Rate [Right Brachial] 89 Respiratory Rate 15 Blood Pressure [Right Arm] 105/42 L Blood Pressure Mean [Right Arm] 63 Blood Pressure Source [Right Arm] Automatic Cuff Blood Pressure Position [Right Arm] Sitting 02 Sat by Pulse Oximetry 99 Oxygen Delivery Method Room Air - Lab Data Lab Results 10/12/20 22:35: Urine HCG, Qual Negative Orders (Tests/Meds): ED MEDICATIONS Generic Name Dose Route Start Last Admin Trade Name Freq PRN Reason Stop Dose Admin Sodium Chloride 1,000 mls @ 999 mls/hr 10/12/20 22:15 10/12/20 22:48 Sod Chlor 0.9% 1000ml Bag IV 10/12/20 23:15 999 mls/hr .Q1H1M GABRIELE Administration Discontinued Medications Generic Name Dose Route Start Last Admin Trade Name Freq PRN Reason Stop Dose Admin Diphenhydramine HCl 25 mg 10/12/20 22:11 10/12/20 22:47 Diphenhydramine 50mg/Ml Vial IV 10/12/20 22:12 25 mg ONCE ONE Administration Iopamidol 100 ml 10/12/20 23:53 02/28/21 23:55 Iopamidol-370 (76%);100ml Bottle IV 10/12/20 23:54 100 ml ONCE ONE Administration Ketorolac Tromethamine 15 mg 10/12/20 22:11 10/12/20 22:48 Ketorolac 30mg/Ml Vial IV 10/12/20 22:12 15 mg ONCE ONE Administration Metoclopramide HCl 10 mg 10/12/20 22:11 10/12/20 22:47 Metoclopramide Hcl 10mg/2ml Vial IVP 10/12/20 22:12 10 mg ONCE ONE Administration Sodium Chloride 10 ml 10/12/20 23:53 10/12/20 23:55 Sodium Chloride 0.9% 10ml Syr (Rad Only) IV 10/12/20 23:54 10 ml ONCE ONE Administration Sodium Chloride 40 ml 10/12/20 23:53 10/12/20 23:55 Rad-Sodium Chloride 0.9% 250ml Bag IV 10/12/20 23:54 40 ml ONCE ONE Administration ORDERS Category Date Time Status CT angio head Stat Cat Scan 10/12/20 23:09 Taken - CT Data CT Scan: Head Time Received: 23:[address] Reviewed: Yes: I have reviewed the patient's CT results, I have viewed the radiologist's interpretation Preliminary Findings: Normal/NAD Findings Narrative: No cavernous venous thrombus. No brain mass, mass-effect, midline shift. No ventriculomegaly Medical Decision Narrative: In summary this is a 39-year-old female presenting to the emergency department with frontal headache of 2 days duration. She is awake and alert on arrival. Vital signs within normal limits. Headache was not sudden or maximal, doubt sentinel bleed or hemorrhage. Her description of frontal throbbing headache is concerning for abnormality like cavernous venous thrombus. She also is 39 years old and has never had any form of head imagi
[2020-10-12 22:49] LABS: Urine Pregnancy, HCG Qual. Negative (Negative)
--- NOTE | 2020-10-12 23:09 | CT_ITS ---
Procedure: CT ANGIO HEAD CLINICAL HISTORY: headache, vomiting COMPARISON: No exams were available for comparison TECHNIQUE: IV Contrast: 100ml Isovue 370 Axial images obtained with sagittal and coronal reformats. All CT scans at the facility use one or more dose reduction, viz: automated exposure control, ma/kV adjustment per patient size (including targeted exams where dose is matched to indication, i.e. head), or iterative reconstruction technique. FINDINGS: No aneurysm, AVM, or major intracranial occlusive process evident. There is a persistent origin of the left posterior cerebral artery as a normal variant. No evidence of dissection. No evidence of dural sinus thrombosis. IMPRESSION: Negative CTA of the brain No venous thrombosis apparent No enhancing lesions midline shift mass effect or hydrocephalus. Dictated by: Sanchez Doherty MD 10/13/2020 06:49 Sanchez Doherty MD in [place] 10/13/2020 06:49
--- NOTE | 2020-10-12 23:50 | PC.NURSE ---
received ct result. notified
[2020-10-13 00:34] VITALS: BP 113/56; PULSE 89; RESP 17; TEMP 36.7; O2SAT 98
== END 2020-10-13 00:36 | disposition home or self-care (01) ==
PROVIDERS: Emergency Provider Emergency Medicine; PCP Pediatrics
DX: R51.9 Headache, unspecified (principal); R11.2 Nausea with vomiting, unspecified; F17.210 Nicotine dependence, cigarettes, uncomplicated; F41.8 Other specified anxiety disorders
CPT/HCPCS: 70496; 81025; 96365; 96375; 99282; Q9967

== ENCOUNTER 2020-12-17 10:00 | Outpatient (RCR) | payer OTHER, SELFPAY | END 2020-12-17 10:05 | disposition home or self-care (01) | LOC: OT 10:00 | PROVIDERS: PCP Pediatrics; Visit Provider Physician Assistant | DX: M25.521 Pain in right elbow (principal) | CPT/HCPCS: 97014; 97035; 97110; 97140; 97164; 97165; 97530; G0283 ==

== ENCOUNTER → 2022-03-10 15:14 | Outpatient (CLI) | payer OTHER, SELFPAY ==
[2022-03-12 11:16] LABS: FSH 9.2 mIU/mL (.); LH 4.6 mIU/mL (.)
== END ==
PROVIDERS: PCP Nurse Practitioner Family; Visit Provider Nurse Practitioner Obstetrics & Gynecology
DX: Z01.419 Encounter for gynecological examination (general) (routine) without abnormal findings (principal)
CPT/HCPCS: 36415; 82670; 83001; 83002

== ENCOUNTER → 2022-03-17 14:45 | Outpatient (CLI) | payer OTHER, SELFPAY ==
--- NOTE | 2022-03-17 14:46 | US_ITS ---
PROCEDURE INFORMATION: Exam: US Right Breast, Complete Exam date and time: 03/17/2022 2:58 PM Age: 41 years old Clinical indication: History of right cystic change TECHNIQUE: Imaging protocol: Complete ultrasound of all four quadrants of the Right breast and the retroareolar regions, including ultrasound of the axilla when performed. COMPARISON: US BREAST RT COMPLETE 09/13/2019 1:39 PM FINDINGS: Breast: Sonographic images of the right breast including the retroareolar region, all 4 quadrants and the axilla demonstrates a slightly irregularly marginated 6 o'clock axis mass 2 cm from the nipple measuring 0.6 x 0.4 x 0.6 cm in dimension. The finding is radiographically indeterminate. Right 2 o'clock axis 0.3 x 0.3 cm hypoechoic mass 2 cm from the nipple is a stable long-term finding, considered benign. Long-term stable lobulated mass in the right 7 o'clock axis 4 cm from the nipple measuring 1.0 x 1.0 x 0.5 cm, considered benign. Long-term stable right retroareolar mass measuring 0.6 x 0.5 x 0.4 cm, considered benign. No architectural distortion or acoustical shadowing. No skin thickening or axillary adenopathy. IMPRESSION: Slightly irregularly marginated mass in the right 6 o'clock axis. Ultrasound-guided core biopsy is recommended for further evaluation. Remaining masses scattered in the right breast have demonstrated long-term stability and are considered benign. ASSESSMENT: BI-RADS Category 4: Suspicious
== END ==
PROVIDERS: PCP Nurse Practitioner Family; Visit Provider Nurse Practitioner Obstetrics & Gynecology
DX: N60.01 Solitary cyst of right breast (principal)
CPT/HCPCS: 76641

== ENCOUNTER → 2022-04-01 09:42 | Outpatient (CLI) | payer OTHER, SELFPAY ==
--- NOTE | 2022-04-01 09:43 | US_ITS ---
FINAL REPORT CLINICAL HISTORY: .RT BREAST BIOPSY FINDINGS: ULTRASOUND-GUIDED RIGHT BREAST FINE NEEDLE ASPIRATION TECHNIQUE: Limited images were obtained to localize region of interest. The right breast was prepped in a routine sterile fashion and locally anesthetized with 1% lidocaine. Standard written informed consent was obtained. The biopsy needle was positioned within the outer periphery of the lesion. A core biopsy was not performed due to location of the nodule abutting the chest wall and extremely close to ribs. A total of 4 FNA passes were made with a 21 gauge biopsy needle. Procedure was well tolerated . CONCLUSION: 1. Technically successful ultrasound FNA of right breast lesion at 6:00 Authenticated and ERN
== END ==
PROVIDERS: PCP Nurse Practitioner Family; Visit Provider Nurse Practitioner Obstetrics & Gynecology
DX: N63.10 Unspecified lump in the right breast, unspecified quadrant (principal)
CPT/HCPCS: 19083

== ENCOUNTER → 2022-05-01 08:19 | Outpatient (CLI) | payer OTHER, SELFPAY ==
[2022-05-01 08:49] LABS: Basophils # 0.1 K/mm3 (0-0.2); Basophils % 1.3 % (0.1-2.0); Eosinophils # 0.1 K/mm3 (0.0-0.4); Eosinophils % 1.8 % (0.1-12.0); Hemoglobin 13.5 g/dL (12.2-16.2); Lymphocytes # 2.3 K/mm3 (0.7-4.5); Lymphocytes % 33.7 % (10-50); Mean Corpuscular HGB Conc 32.8 g/dL (31.8-35.4); Mean Corpuscular Hemoglobin 33.6 pg (27.0-31.2); Mean Corpuscular Volume 102.5 fl (81-99); Monocytes # 0.5 K/mm3 (0.1-1.0); Monocytes % 7.6 % (1.7-9.3); Neutrophils # 3.8 K/mm3 (1.8-7.8); Neutrophils % 55.6 % (37.0-80.0); Platelet Count 216 K/mm3 (142-424); Red Cell Distribution Width 12.8 % (11.5-17.5); White Blood Count 6.9 K/mm3 (4.8-10.8)
[2022-05-01 08:51] LABS: Urine Pregnancy, HCG Qual. Negative (Negative)
[2022-05-01 09:02] LABS: Chloride 104 mmol/L (98-107); Potassium 3.5 mmoL/L (3.5-5.1); Sodium 140 mmol/L (136-145)
[2022-05-01 09:05] LABS: Anion Gap 13.5 mEq/L (5-15); Blood Urea Nitrogen 7 mg/dl (7-17); Calcium 8.7 mg/dl (8.4-10.2); Carbon Dioxide 26 mmol/L (22.0-30.0); Estimated Glomerular Filt Rate 111 ml/min (>60); GFR (African American) 135 ML/MIN (>60); Glucose 94 mg/dl (74-100)
== END ==
PROVIDERS: PCP Nurse Practitioner Family; Visit Provider Surgery
DX: Z01.812 Encounter for preprocedural laboratory examination (principal); Z20.822 Contact with and (suspected) exposure to COVID-19; N63.0 Unspecified lump in unspecified breast; Z90.710 Acquired absence of both cervix and uterus
CPT/HCPCS: 36415; 80048; 81025; 85025; C9803; U0003; U0005

== ENCOUNTER 2022-05-04 10:51 | Day surgery (SDC) | payer OTHER, SELFPAY ==
[2022-05-03 14:26] VITALS: BMI 15.7
[2022-05-04] VITALS (7 sets, daily range): BP systolic 103–125; BP diastolic 59–81; PULSE 46–74; RESP 16–19; TEMP 36.3–43; O2SAT 97–100
--- NOTE | 2022-05-04 | US_ITS ---
FINAL REPORT CLINICAL HISTORY: rt needle loc, right breast nodule. Excisional biopsy. FINDINGS: Specimen radiograph right breast History: Hookwire localization with excisional biopsy right breast nodule Findings: Mammographic and sonographic specimen imaging was performed. The nodule of interest is not evident on the specimen radiographs. The hookwire is noted within the periphery of the specimen tissue. However ultrasound directed toward the tissue containing the localization wire shows the nodule of interest with the localization wire coursing through the nodule. IMPRESSION: Specimen radiograph fails to reveal the nodule of interest although sonographic assessment of the specimen shows the nodule of interest contained within the tissue. Authenticated and ERN
--- NOTE | 2022-05-04 11:33 | P.PN_ITS ---
PFSH PFSH Medical History Anxiety Arthritis Depression History of anemia History of COVID-19 Migraine Pneumonia Sinus headache Surgical History H/O elbow surgery H/O exploratory laparotomy History of hysterectomy Hx of appendectomy Family History Father Family history of hypertension Family history of diabetes mellitus type II Grandfather Family history of Alzheimer's disease Social History Smoking Status: Current every day smoker tobacco type: cigarettes packs per day: 1 second hand exposure: No alcohol intake: never substance use type: denies use current occupational status: employed and other Travel in the last 8 weeks: None household members: spouse and family housing: house 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 breast bx Consent for Planned Operative Procedure(s) Verified: Yes NPO Status Verified Time NPO: 00:00 Chart Verification Results Verified: CBC, BMP and HCG Additional verifications Patient : No Anesthesia Reactions: Yes (N/V) Hx Blood Transfusions: No Blood Transfusion Reaction: No Airway Assessment C-Spine Mobility Assessed: Yes TMJ Mobility Assessed: Yes Dentition: Good Dentition Neurological Assessment Level of Consciousness: Awake Hx Seizures: No Numbness or tingling in extremities: No Anesthesia Plan Anesthesia Risk discussed: Yes Anesthesia Plan: Verified ASA Class: II Anesthesia Type: Local & MAC
--- NOTE | 2022-05-04 11:34 | US_ITS ---
FINAL REPORT CLINICAL HISTORY: rt breast needle loc FINDINGS: Ultrasound directed needle localization History: Right breast nodule. Technique: Subcentimeter nodule of the inferior right breast near the chest wall was localized under sonographic guidance. The right breast was prepped in routine sterile fashion and locally anesthetized with 1% lidocaine. A 21-gauge Kopan's needle was directed through the nodule of interest. Hookwire was then deployed. The hook portion of the wire was noted to extend through and medial to the nodule. The bulbous portion of the wire was located within the nodule of interest. IMPRESSION: Technically successful hookwire localization of subcentimeter right breast nodule. Authenticated and ERN
--- NOTE | 2022-05-04 13:22 | MM_ITS ---
FINAL REPORT CLINICAL HISTORY: Right breast specimen FINDINGS: SPECIMEN RADIOGRAPH RIGHT BREAST History: Hookwire localization with excisional biopsy right breast nodule FINDINGS: Mammographic and sonographic specimen imaging was performed. The nodule of interest is not evident on the specimen radiographs. The hookwire is noted within the periphery of the specimen tissue. However ultrasound directed toward the tissue containing the localization wire shows the nodule of interest with the localization wire coursing through the nodule. IMPRESSION: Specimen radiograph fails to reveal the nodule of interest although sonographic assessment of the specimen shows the nodule of interest contained within the tissue. Reviewed, Interpreted and Dictated by Mathew Webber MD Transcribed by Christina Steen Authenticated and [facility]
--- NOTE | 2022-05-04 14:07 | P.OP_ITS ---
Date of procedure: 05/04/22 Pre-op Diagnosis:: Right breast mass Post-op Diagnosis:: Same Procedure performed:: Needle-localized excisional biopsy of right breast mass Surgeon:: Bharathi Padilla MD CASH REGISTER MECHANIC:: Mayank Olivarez Anesthesia: MAC and local Estimated blood loss (mL): 20 Operative findings:: Localization needle excised intact with specimen Extended medial margin excised secondary to palpable tissue ridge thickening Operative note:: After informed consent was obtained the patient was taken to the radiology department where a localization needle was secured in position. Please see separate report for detail. She was then transferred to the operating room and placed in the supine position. Monitored anesthesia care ensued and her right breast was prepped and draped in a sterile fashion. After infiltration local anesthetic an incision was made overlying the exit site for the localization needle. Sharp dissection with curved Donaldson's was then utilized to transect around the lesion as it was carefully elevated. The lesion and localization needle were excised intact and passed off for pathologic evaluation after being marked for margin. The superficial and deep margins were marked with non-dyed Vicryl suture (short superficial/long deep). The superior and lateral margins were marked with dyed Vicryl suture (short superior/long lateral). The specimen was then transferred to the radiology department for confirmation. A palpable ridge thickening was noted along the medial extent of the excision site. This tissue was carefully elevated. An obvious cystic lesion was excised along with a portion of this extended medial margin. This was passed off for separate pathologic evaluation. Electrocautery was utilized to achieve hemostasis. The wound was thoroughly irrigated. Metallic clips were placed along the wound base and margin. The shallow subcutaneous tissue was reapproximated with interrupted 9 undyed Vicryl suture. Dressings were applied and the patient was transferred to recovery in stable condition. Condition: stable Disposition: PACU Specimens:: Needle-localized excisional right breast biopsy Extended medial margin Complications:: No immediate
== END 2022-05-04 15:00 | disposition home or self-care (01) ==
PROVIDERS: PCP Nurse Practitioner Family; Visit Provider Surgery
PROC: (CPT 19120; principal; 2022-05-04 12:30)
DX: D24.1 Benign neoplasm of right breast (principal); F17.210 Nicotine dependence, cigarettes, uncomplicated
CPT/HCPCS: 19120; 19285; 76098; 76642; 96374; J2405

== ENCOUNTER 2022-07-27 14:34 | Emergency (ER) | payer OTHER, SELFPAY ==
[2022-07-27 14:34] VITALS: BP 124/74; PULSE 87; RESP 16; TEMP 36.6; O2SAT 100; BMI 16.2
--- NOTE | 2022-07-27 14:36 | ECG_ITS ---
APPROVED REPORT Exam: Resting ECG HR:76 bpm ECG Measurements Heart Rate 76 AXES SC 150 P 80 QRSd 74 QRS 75 QT 367 T 66 QTc 398 Conclusion SINUS RHYTHM POSSIBLE RIGHT ATRIAL ENLARGEMENT [0.25mV P-WAVE] POSSIBLE LEFT ATRIAL ENLARGEMENT [-0.1mV P-WAVE IN V1/V2] NONSPECIFIC T-WAVE ABNORMALITY BORDERLINE ECG UNCONFIRMED REPORT Electronically signed by : Tej Lai MD 07/27/2022 19:52:51
--- NOTE | 2022-07-27 14:44 | HMH.EDGENADL ---
Discharge Plan Disposition Patient Disposition: Home, Self-Care Condition: Good Prescriptions Prescriptions: No Action glycopyrrolate 2 mg tablet 2 mg PO DAILY sertraline 100 mg tablet 100 mg PO BID buspirone 10 mg tablet 10 mg PO BID acyclovir 400 mg tablet 400 mg PO BID glycopyrrolate 2 mg tablet 2 mg PO DAILY Referrals Follow up/Referrals: Maura Campbell APRN [Primary Care Provider] - See instructions Activity Restrictions/Add. Instructions Additional Instructions/Restrictions: Additional instructions for CHEST PAIN: See your physician as soon as possible for further evaluation. Return immediately if worsening chest pain, vomiting, shortness of breath, fever, coughing of blood. Clinical Impressions Clinical Impression: Atypical chest pain Instructions Patient Instructions: DI for Atypical Chest Pain Discharge ED Provider: Franky Doe General Adult HPI General Chief complaint: Chest Pain Stated complaint: CP Time Seen by Provider: 07/27/22 15:22 History of Present Illness HPI narrative: The patient is sent from her primary care provider's office for evaluation of chest pain. She states that she woke up this morning with a headache and some pain in her neck and nausea. But that has gone away, but about 10 AM she started developing a sensation of chest pressure in her left lateral chest intermittently. She says it feels like her heart is too big and is going to swell out of her chest. Currently she has no discomfort. She has not had any shortness of breath. No cough. No hemoptysis. No leg swelling. She does not have any known heart disease. She is a smoker. She saw her primary care provider today who did an EKG and sent her to the emergency room because she did not like my symptoms and wanted me to get checked out . No recent hospitalizations. She did have outpatient surgery to have a lump removed from her right breast in April. She says it was benign, cystic. Related Data Home Medications Medication Instructions Recorded Confirmed acyclovir 400 mg tablet 400 mg PO BID Pain 03/10/22 06/09/22 buspirone 10 mg tablet 10 mg PO BID Depression 03/10/22 06/09/22 glycopyrrolate 2 mg tablet 2 mg PO DAILY sweat 03/10/22 06/09/22 sertraline 100 mg tablet 100 mg PO BID Depression 03/10/22 06/09/22 glycopyrrolate 2 mg tablet 2 mg PO DAILY excessive sweating 07/27/22 07/27/22 Allergies Allergy/AdvReac Type Severity Reaction Status Date / Time adhesive Allergy Verified 06/09/22 13:12 [facility] Disclaimer: The information contained in this section may have been updated after the patient was seen, as this information can be updated by other users. Medical History Anxiety Arthritis Depression History of anemia History of COVID-19 Migraine Pneumonia Sinus headache Surgical History H/O elbow surgery H/O exploratory laparotomy History of breast biopsy History of hysterectomy Hx of appendectomy Family History Father Family history of hypertension Family history of diabetes mellitus type II Grandfather Family history of Alzheimer's disease Social History Smoking Status: Current every day smoker tobacco type: cigarettes packs per day: 1 second hand exposure: No alcohol intake: never substance use type: denies use current occupational status: employed and other Travel in the last 8 weeks: None household members: spouse and family housing: house 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
[2022-07-27 14:54] VITALS: BMI 16.2
--- NOTE | 2022-07-27 14:55 | XR_ITS ---
FINAL REPORT CLINICAL HISTORY: chest pain FINDINGS: A single portable view of the chest was obtained. The heart size and pulmonary vascularity are within normal limits. The mediastinum is within normal limits. No acute pulmonary abnormality is identified. There are postoperative changes in the right chest wall. The bony thorax is intact. IMPRESSION: No active cardiopulmonary disease. Reviewed, Interpreted and Dictated by Figueroa Cleaning III, MD Transcribed by Christina Stene Authenticated and . [facility]
[2022-07-27 15:06] LABS: Chloride 106 mmol/L (98-107); Potassium 3.5 mmoL/L (3.5-5.1); Sodium 140 mmol/L (136-145)
[2022-07-27 15:09] LABS: Anion Gap 11.5 mEq/L (5-15); Blood Urea Nitrogen 8 mg/dl (7-17); Calcium 9.5 mg/dl (8.4-10.2); Carbon Dioxide 26 mmol/L (22.0-30.0); Creatinine Clearance Estimated 96 mL/min (50-200); Estimated Glomerular Filt Rate 111 ml/min (>60); GFR (African American) 135 ML/MIN (>60); Glucose 94 mg/dl (74-100)
[2022-07-27 15:13] LABS: Basophils # 0.1 K/mm3 (0-0.2); Basophils % 0.9 % (0.1-2.0); Eosinophils % 0.4 % (0.1-12.0); Hematocrit 45.8 % (37.0-47.0); Hemoglobin 14.7 g/dL (12.2-16.2); Lymphocytes # 1.9 K/mm3 (0.7-4.5); Lymphocytes % 24.4 % (10-50); Mean Corpuscular HGB Conc 32.1 g/dL (31.8-35.4); Mean Corpuscular Hemoglobin 33.3 pg (27.0-31.2); Mean Corpuscular Volume 103.8 fl (81-99); Mean Platelet Volume 8.9 fl (7.4-10.4); Monocytes # 0.5 K/mm3 (0.1-1.0); Monocytes % 6.4 % (1.7-9.3); Neutrophils # 5.4 K/mm3 (1.8-7.8); Neutrophils % 67.9 % (37.0-80.0); Platelet Count 207 K/mm3 (142-424); Red Blood Count 4.42 M/mm3 (4.20-5.40); Red Cell Distribution Width 12.4 % (11.5-17.5); White Blood Count 7.9 K/mm3 (4.8-10.8)
[2022-07-27 15:28] LABS: Troponin I < 0.01 ng/ml (0.00-0.034)
[2022-07-27 15:43] VITALS: BP 111/65; RESP 16; O2SAT 97
--- NOTE | 2022-07-27 15:43 | PC.NURSE ---
Pt sitting on ED stretcher playing on Phone. Given a warm blanket, no other needs at this time
--- NOTE | 2022-07-27 15:55 | PC.NURSE ---
Notified lab of D-dimer add on
--- NOTE | 2022-07-27 16:19 | PC.NURSE ---
checked on pt at this time, pt states no needs at this time. Notified pt next set of lab work will be drawn in approx 1 hr 15 mins
[2022-07-27 16:21] LABS: D-Dimer 0.69 ug/mL (0.0-0.5)
[2022-07-27 16:31] VITALS: BP 116/86; PULSE 64; RESP 12; O2SAT 97
--- NOTE | 2022-07-27 16:42 | CT_ITS ---
PROCEDURE INFORMATION: Exam: CTA Chest With Contrast Exam date and time: 07/27/2022 4:54 PM Age: 41 years old Clinical indication: Pain; Chest pressure; Additional info: Cp, elev d-dimer TECHNIQUE: Imaging protocol: Computed tomographic angiography of the chest with contrast. 3D rendering (Not supervised by radiologist): MIP and/or 3D reconstructed images were created by the technologist. Radiation optimization: All CT scans at this facility use at least one of these dose optimization techniques: automated exposure control; mA and/or kV adjustment per patient size (includes targeted exams where dose is matched to clinical indication); or iterative reconstruction. Contrast material: ISOVUE; Contrast volume: 70 ml; Contrast route: INTRAVENOUS (IV); COMPARISON: CR XR CHEST PORTABLE 07/27/2022 3:24 PM FINDINGS: Pulmonary arteries: Normal. No pulmonary emboli. Aorta: Unremarkable. No aortic aneurysm. No aortic dissection. Lungs: Minor atelectasis in the right middle lobe. No acute airspace consolidation. Pleural spaces: Unremarkable. No pneumothorax. No pleural effusion. Heart: Unremarkable. No cardiomegaly. No pericardial effusion. Lymph nodes: Small calcified lymph nodes in the right hilar region. No lymphadenopathy. Bones/joints: Unremarkable. No acute fracture. Soft tissues: Unremarkable. IMPRESSION: No acute findings.
--- NOTE | 2022-07-27 16:43 | PC.NURSE ---
Notified gis technician of order
--- NOTE | 2022-07-27 16:51 | PC.NURSE ---
pt in CT
[2022-07-27 17:00] VITALS: BP 125/93
[2022-07-27 17:30] VITALS: BP 106/73
[2022-07-27 18:26] LABS: Troponin I < 0.01 ng/ml (0.00-0.034)
--- NOTE | 2022-07-27 18:43 | PC.NURSE ---
notified ER pt second troponin is resulted
[2022-07-27 18:48] VITALS: BP 106/73; PULSE 64; RESP 16; TEMP 36.6; O2SAT 97
== END 2022-07-27 18:48 | disposition home or self-care (01) ==
PROVIDERS: Emergency Provider Emergency Medicine; PCP Nurse Practitioner Family
DX: R07.89 Other chest pain (principal); Z79.899 Other long term (current) drug therapy; F41.9 Anxiety disorder, unspecified; M19.90 Unspecified osteoarthritis, unspecified site; F32.A Depression, unspecified; G43.909 Migraine, unspecified, not intractable, without status migrainosus
CPT/HCPCS: 71045; 71275; 80048; 84484; 85025; 85378; 93005; 99284; Q9967

== ENCOUNTER → 2022-08-04 13:17 | Outpatient (CLI) | payer OTHER, SELFPAY ==
--- NOTE | 2022-08-04 | CA_ITS ---
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 Mechanic Apprentice: Radha Aguirre RVT Ht: 5 ft 8 in Wt: 105lbs BSA: 1.55 BP: 106/73 mmHg Indications: MVP,ABN EKG,SMOKER,HX COVID TDS-PT BODY HABITUS 2D Dimensions LVOT 1.90 cm (M/F) 1.5-2.5 LA Volume 17.30 mL LA Volume Index 11.09 mL/m2 (M/F) 16-34 M-Mode Dimensions RVDd 1.66 cm (0.9-2.6) LA Diam 2.06 cm (1.9-4.0) LVDd 4.66 cm (3.5-5.7) Ao Diam 2.29 cm (2.0-3.7) LVDs 3.13 cm (3.5-5.7) IVSd 0.53 cm (0.6-1.1) PWd 0.50 cm (0.6-1.1) EF (Teich) 61.30% FS 32.80% EDV (Teich) 100.30 mL TAPSE 1.69 (<1.7) ESV (Teich) 38.80 mL LV Diastology E Decel Time 270.00 (160-240 msec) E/A Ratio 1.0 MED E' 12.40 (< 7 cm/sec) E'/MED E' Ratio 6.85 (>14) LAT E' 16.90 (<10 cm/sec) E/LAT E' Ratio 5.03 (>14) Aortic Valve AO Peak GR. 6.40 mmHg Mitral Valve MV E Max Petr. 85.00 (40-130 cm/s) MV A Velocity 84.00 (40-130 cm/s) E/A Ratio 1.01 MV Decel. Time 270.00 (160-240 ms) MV PHT 79.00 ms Pulmonary Valve PV Peak Velocity 57.00 (50-150 cm/s) Tricuspid Valve TR P. Velocity 275.00 cm/s RAP Estimate 10.00 mmHg RVSP 40.20 mmHg Left Ventricle Left atrium is normal size, left ventricle is normal size, estimated ejection fraction 55% with no regional wall motion abnormality, diastolic parameters are within normal range. Right Ventricle Right atrium and right ventricle are normal size and contractility. Aortic Valve Aortic valve is grossly normal, there is no aortic stenosis or aortic insufficiency. Mitral Valve Mitral valve grossly normal, there is no mitral regurgitation. Tricuspid Valve Tricuspid valve grossly normal, there is trace tricuspid regurgitation, calculated right ventricular systolic pressure 32 mmHg. Pulmonic Valve Pulmonic valve is poorly visualized. Great Vessels Aortic root is normal size. Inferior vena cava is poorly visualized. Pericardium No significant pericardial effusion noted. Conclusion 1. Normal left ventricular size preserved left ventricular systolic function, estimated ejection fraction 55% with no regional wall motion abnormality, diastolic parameters are within normal range. 2. No obvious mitral valve prolapse or mitral regurgitation seen. 3. Trace tricuspid regurgitation. 4. No significant pericardial effusion noted. 5. Inferior vena cava is poorly visualized. Electronically signed by : Willis Zelaya MD 08/05/2022 06:56:35
== END ==
PROVIDERS: PCP Nurse Practitioner Family; Visit Provider Nurse Practitioner Family
DX: R07.9 Chest pain, unspecified (principal); R94.31 Abnormal electrocardiogram [ECG] [EKG]
CPT/HCPCS: 93306

== ENCOUNTER → 2022-08-31 09:47 | Outpatient (CLI) | payer OTHER, SELFPAY ==
--- NOTE | 2022-08-31 09:53 | XR_ITS ---
FINAL REPORT CLINICAL HISTORY: SHOULDER PAIN, swelling, no injury, pending lupus dx FINDINGS: 2 views of the left clavicle were obtained. There is no acute fracture. The joint spaces are intact. There is no soft tissue abnormality. IMPRESSION: No acute process. Reviewed, Interpreted and Dictated by Amy Street MD Transcribed by Felipe Ray Authenticated and [facility]
--- NOTE | 2022-08-31 09:53 | XR_ITS ---
FINAL REPORT CLINICAL HISTORY: SHOULDER PAIN, no injury , swelling, pending lupus dx FINDINGS: Scapular Y, internal and external rotation views of the left shoulder were obtained. There is no prior exam for comparison. There is no fracture or dislocation. The joint space is preserved. Soft tissues are normal. IMPRESSION: No acute osseous abnormality of the left shoulder. Reviewed, Interpreted and Dictated by Amy Street MD Transcribed by Felipe Ray Authenticated and [facility]
== END ==
PROVIDERS: PCP Nurse Practitioner Family; Visit Provider Nurse Practitioner Family
DX: M25.512 Pain in left shoulder (principal)
CPT/HCPCS: 73000; 73030

== ENCOUNTER → 2022-12-21 09:34 | Outpatient (CLI) | payer OTHER, SELFPAY ==
--- NOTE | 2022-12-21 09:40 | XR_ITS ---
FINAL REPORT CLINICAL HISTORY: RT SHOULDER PAIN..lift something wrong last week COMPARISON: 10/2019 FINDINGS: Two views show no evidence of acute displaced fracture or dislocation of the visualized bony architecture. The joint spaces appear normal. IMPRESSION: Unremarkable exam. Reviewed, Interpreted and Dictated by Mathew Webber MD Transcribed by Felipe Ray Authenticated and [facility]
== END ==
PROVIDERS: PCP Nurse Practitioner Family; Visit Provider Nurse Practitioner Family
DX: M25.511 Pain in right shoulder (principal)
CPT/HCPCS: 73030

== ENCOUNTER → 2022-12-24 16:08 | Outpatient (CLI) | payer OTHER, SELFPAY ==
--- NOTE | 2022-12-24 16:14 | MR_ITS ---
PROCEDURE INFORMATION: Exam: MR Right Upper Extremity Joint Without Contrast; Shoulder Exam date and time: 12/24/2022 4:30 PM Age: 42 years old Clinical indication: Pain; Shoulder; Right; Additional info: Right shoulder pain. Injury in 2019. Pain when working with arm. TECHNIQUE: Imaging protocol: Magnetic resonance imaging of the right upper extremity without contrast. Exam focused on the shoulder. COMPARISON: MR SHOULDER RT WO CON 11/02/2019 12:53 PM FINDINGS: Bones/joints: Minimal glenohumeral joint effusion. Minimal fluid within the subscapularis recess. No visualized acute marrow edema. No dislocation of the shoulder. The acromioclavicular joint is intact. Narrowing of the subacromial space. Glenoid labrum: There is a focus of T2 hyperintensity within the posterosuperior aspect of the labrum, consistent with labral tear. Heterogeneous signal intensity of the posterior aspect of the labrum. Supraspinatus tendon: Mild heterogeneous signal intensity of the supraspinatus tendon, consistent with tendinosis. No definitive tear. Infraspinatus tendon: Tendinosis visualized of the infraspinatus tendon, with suggested partial tear distally. Subscapularis tendon: Mild stenosis visualized of the subscapularis tendon, without visualized tear. Teres minor tendon: No evidence of tear. Tendon of biceps brachii: No evidence of tear. Glenohumeral ligaments: No evidence of tear of the inferior glenohumeral ligament. Soft tissues: Unremarkable. Lymph nodes: Nonspecific axillary lymph nodes are seen. One of these lymph nodes is enlarged measuring 2.4 cm in length. IMPRESSION: 1. Supraspinatus and subscapularis tendinosis. 2. Tendinosis visualized of the infraspinatus tendon, with suggested partial tear distally. 3. Minimal glenohumeral joint effusion. 4. Labral tear. 5. Additional findings described above.
== END ==
PROVIDERS: PCP Nurse Practitioner Family; Visit Provider Nurse Practitioner Family
DX: M25.511 Pain in right shoulder (principal)
CPT/HCPCS: 73221

== ENCOUNTER 2023-02-11 11:00 | Outpatient (RCR) | payer OTHER, SELFPAY | END 2023-02-11 11:05 | disposition home or self-care (01) | LOC: OT 11:00 | PROVIDERS: PCP Nurse Practitioner Family; Visit Provider Orthopaedic Surgery | DX: S46.011A Strain of muscle(s) and tendon(s) of the rotator cuff of right shoulder, initial encounter (principal) | CPT/HCPCS: 97010; 97014; 97110; 97140; 97164; 97166; G0283 ==

== ENCOUNTER 2023-03-18 08:00 | Outpatient (RCR) | payer OTHER, SELFPAY | END 2023-03-18 08:05 | disposition home or self-care (01) | LOC: PT 08:00 | PROVIDERS: PCP Nurse Practitioner Family; Visit Provider Nurse Practitioner Family | DX: S46.011A Strain of muscle(s) and tendon(s) of the rotator cuff of right shoulder, initial encounter (principal) | CPT/HCPCS: 20560; 97010; 97014; 97035; 97110; 97112; 97163; 97530; G0283 ==

== ENCOUNTER → 2023-06-30 14:45 | Outpatient (CLI) | payer OTHER, SELFPAY ==
--- NOTE | 2023-06-30 14:50 | MM_ITS ---
PROCEDURE INFORMATION: Exam: US Left Breast, Complete MG Left Diagnostic Breast Tomosynthesis Exam date and time: 06/30/2023 3:06 PM Age: 42 years old Clinical indication: Left breast palpable lump; Breast pain TECHNIQUE: Imaging protocol: Complete ultrasound of all four quadrants of the left breast and the retroareolar regions, including ultrasound of the axilla when performed. Left Diagnostic tomosynthesis and 2D mammography including computer-aided detection (CAD) when performed. Unilateral or bilateral exam. COMPARISON: US BREAST LT COMPLETE 09/13/2019 1:48 PM FINDINGS: MAMMOGRAPHY: The breast tissue is extremely dense, which lowers the sensitivity of mammography. There is no stellate mass, architectural distortion or suspicious microcalcifications to suggest malignancy. A skin marker was placed over an area of palpable concern in the left 6 o'clock axis. Dense normal fibroglandular structures are noted. No skin thickening or axillary adenopathy. ULTRASOUND: Sonographic images of the left breast including the retroareolar region, all 4 quadrants and the axilla do not demonstrate any solid or cystic masses. Cursors were placed over normal fibroglandular structures versus a possible 0.4 cm cyst in the 1 o'clock periareolar region. No architectural distortion or acoustical shadowing. No skin thickening or axillary adenopathy. IMPRESSION: Palpable abnormality in the left breast corresponds both mammographically and sonographically to normal fibroglandular structures. There is no mammographic evidence of malignancy. Further evaluation of a palpable abnormality should be based on clinical grounds regardless of radiographic findings or lack thereof. Annual mammographic screening is recommended on the right at the current time if the patient has not already done so ASSESSMENT: BI-RADS Category 2: Benign
== END ==
LOC: RAD 14:46
PROVIDERS: PCP Nurse Practitioner Family; Visit Provider Nurse Practitioner Family
DX: N63.24 Unspecified lump in the left breast, lower inner quadrant (principal)
CPT/HCPCS: 76641; 77061; 77063; 77065; 77067; G0279

== ENCOUNTER 2023-12-28 13:02 | Outpatient (CLI) | payer OTHER, SELFPAY ==
--- NOTE | 2023-12-28 13:07 | US_ITS ---
FINAL REPORT TECHNIQUE: Ultrasound images of the kidneys and bladder were obtained. CLINICAL HISTORY: ABDOMINAL PAIN FINDINGS: The right kidney measures 8.9 cm in length. It is normal in echogenicity. There is no hydronephrosis. The left kidney measures 11.1 cm in length. It is normal in echogenicity. There is no hydronephrosis. There are questionable small left renal stones. The spleen is unremarkable. IMPRESSION: Questionable small left renal stones. If indicated, stone protocol CT may be helpful. Reviewed, Interpreted and Dictated by Figueroa Cleaning III, MD Transcribed by Charity Marley Authenticated and [facility]
== END 2023-12-28 23:59 | disposition home or self-care (01) ==
LOC: RAD 13:03
PROVIDERS: PCP Nurse Practitioner Family; Visit Provider Nurse Practitioner Family
DX: R10.9 Unspecified abdominal pain (principal)
CPT/HCPCS: 76770

== ENCOUNTER 2024-01-12 13:10 | Outpatient (CLI) | payer OTHER, SELFPAY ==
--- NOTE | 2024-01-12 13:15 | XR_ITS ---
FINAL REPORT CLINICAL HISTORY: lt elbow pain COMPARISON: None FINDINGS: LEFT ELBOW 3 views were obtained. There is no acute fracture or dislocation. There is no joint effusion. The joint spaces are intact. There is no soft tissue abnormality. IMPRESSION: No acute bony abnormality. Reviewed, Interpreted and Dictated by Avery Canela MD Transcribed by Janell Maravilla Authenticated and [facility]
== END 2024-01-12 23:59 | disposition home or self-care (01) ==
LOC: RAD 13:11
PROVIDERS: PCP Nurse Practitioner Family; Visit Provider Physician Assistant Surgical
DX: M25.522 Pain in left elbow (principal)
CPT/HCPCS: 73080

== ENCOUNTER 2024-02-06 13:45 | Outpatient (CLI) | payer OTHER, SELFPAY ==
[2024-02-06 14:41] LABS: Blood Urea Nitrogen 9 mg/dl (7-17); Estimated Glomerular Filt Rate 110 ml/min (>60); GFR (African American) 133 ML/MIN (>60)
== END 2024-02-06 23:59 | disposition home or self-care (01) ==
LOC: LAB 13:46
PROVIDERS: PCP Nurse Practitioner Family; Visit Provider Urology
DX: R31.9 Hematuria, unspecified (principal)
CPT/HCPCS: 82565; 84520

== ENCOUNTER 2024-02-14 08:35 | Outpatient (CLI) | payer OTHER, SELFPAY ==
--- NOTE | 2024-02-14 08:40 | CT_ITS ---
FINAL REPORT TECHNIQUE: Axial CT images of the abdomen and pelvis were obtained before and after the administration of IV contrast. This study was performed with techniques to keep radiation doses as low as reasonably achievable (ALARA). Individualized dose reduction techniques using automated exposure control or adjustment of mA and/or kV according to the patient''s size were employed. CLINICAL HISTORY: kidney stones COMPARISON: Renal ultrasound 12/28/2023 FINDINGS: Abdomen: The lung bases are clear. The heart is normal in size. The liver has an unremarkable appearance, without evidence of mass or biliary duct dilatation. . The spleen is unremarkable. No adrenal masses present. The pancreas has an unremarkable appearance. The kidneys enhance normally without evidence of renal mass. The aorta is normal in caliber. There is no free fluid or adenopathy. No mass or abnormal fluid collection is seen. Precontrast images demonstrate no evidence of nephrolithiasis. Pelvis: The appendix is not identified and there are no secondary signs of appendicitis. The urinary bladder is unremarkable. No inflammatory process is seen. There is no evidence of mass or adenopathy. There is no evidence of bowel obstruction. There is no evidence of abnormal contrast-enhancement. IMPRESSION: No evidence of acute intra-abdominal process. No evidence of kidney stones. Reviewed, Interpreted and Dictated by Figueroa Cleanign III, MD Transcribed by Janell Maravilla Authenticated and [facility]
== END 2024-02-14 23:59 | disposition home or self-care (01) ==
LOC: RAD 08:36
PROVIDERS: PCP Nurse Practitioner Family; Visit Provider Urology
DX: N20.0 Calculus of kidney (principal)
CPT/HCPCS: 74178

== ENCOUNTER 2024-03-09 07:34 | Emergency (ER) | payer OTHER, SELFPAY ==
[2024-03-09 07:35] VITALS: BP 129/63; PULSE 78; RESP 18; TEMP 36.8; O2SAT 99; BMI 15.5
[2024-03-09 07:37] VITALS: BP 129/63; PULSE 88; O2SAT 96
--- NOTE | 2024-03-09 07:40 | PC.NURSE ---
DR BURDEN AT BEDSIDE
--- NOTE | 2024-03-09 07:44 | PC.NURSE ---
PT TO XR
--- NOTE | 2024-03-09 07:46 | XR_ITS ---
FINAL REPORT CLINICAL HISTORY: FALL COMPARISON: None FINDINGS: 2 views of the right forearm were obtained. There is no acute fracture or dislocation. The joints are intact. There are no soft tissue abnormalities. IMPRESSION: No acute process. Reviewed, Interpreted and Dictated by Mathew Webber MD Transcribed by Kimber Perez Authenticated and [facility]
--- NOTE | 2024-03-09 07:46 | XR_ITS ---
FINAL REPORT CLINICAL HISTORY: FALL COMPARISON: None FINDINGS: RIGHT WRIST: Two images of the right wrist were obtained. There is no evidence of fracture or dislocation. The joint spaces are intact. There is no soft tissue abnormality identified. IMPRESSION: No acute bony abnormality. Reviewed, Interpreted and Dictated by Mathew Webber MD Transcribed by Kimber Perez Authenticated and [facility]
--- NOTE | 2024-03-09 07:59 | PC.WOUNDNOTE ---
PT RETURNED FROM XR
[2024-03-09 08:00] VITALS: BP 119/79; PULSE 88; O2SAT 100
--- NOTE | 2024-03-09 08:09 | ED_ITS ---
Discharge Plan Disposition Patient Disposition: Home, Self-Care Chief Complaint: Extremity Injury, Upper Prescriptions Prescriptions: No Action glycopyrrolate 2 mg tablet 2 mg PO DAILY sertraline 100 mg tablet 100 mg PO BID buspirone 10 mg tablet 10 mg PO BID acyclovir 400 mg tablet 400 mg PO BID estradiol 0.01 % (0.1 mg/gram) cream See Rx Instructions vaginal .COMPLEX Qty: 42.5 2RF Rx Instructions: Using finger technique daily for two weeks and then twice weekly vaginally; glycopyrrolate 2 mg tablet 2 mg PO DAILY Referrals Follow up/Referrals: Maura Campbell APRN [Primary Care Provider] - See instructions Activity Restrictions/Add. Instructions Additional Instructions/Restrictions: Call your family doctor to establish care for this visit to the emergency department and schedule follow-up as needed to ensure improvement. If you have any worsening of your condition or any other concerning signs or symptoms, return to the emergency department or your primary care doctor for further evaluation. Take Tylenol 1000 mg every 6 hours (4 times daily) and ibuprofen 400 mg every 6 hours (4 times daily) as needed with food and water to prevent GI upset and kidney damage. Clinical Impressions Clinical Impression: Pain in right forearm Print Language Print Language: Romansh Discharge ED Provider: Kirby Stevens General Adult HPI General Chief complaint: Extremity Injury, Upper Stated complaint: AO-03/09 Fall-Pain and swelling in R wrist/arm Time Seen by Provider: 03/09/24 07:54 Mode of Arrival: Ambulatory Source of Information: Patient Limitations: No Limitations Description of Symptoms (Recalled from ER Triage Doc. by RN): PT TRIPPED THIS AM AND RIGHT HAND/WRIST STRUCK DOOR FRAME. REPORTS PAIN TO RIGHT WRIST/FOREARM. HAS HAD PREVIOUS SURGERY TO AFFECTED ARM History of Present Illness HPI narrative: Please note that above description of symptoms, in this electronic medical record under categorization of recalled from ER triage doctor by RN are reflective of an initial nursing assessment, however, is not reflective of my full history and physical exam that was personally taken and clarified. Consequentially, this preceding description of symptoms, which may include the patient's categorized chief complaint in the EMR, do not reflect my personal clinical impression, and the ultimate description of history of present illness and patient stated complaints should be deferred to this section of the note. Unless stated otherwise or congruent with this section of the note, additional signs, symptoms, or incongruence should be interpreted as inaccurate with my clinical impression. Related Data Home Medications ?Medication ?Instructions ?Recorded ?Confirmed acyclovir 400 mg tablet 400 mg PO BID Pain 03/10/22 02/06/24 buspirone 10 mg tablet 10 mg PO BID Depression 03/10/22 02/06/24 glycopyrrolate 2 mg tablet 2 mg PO DAILY sweat 03/10/22 02/06/24 sertraline 100 mg tablet 100 mg PO BID Depression 03/10/22 02/06/24 glycopyrrolate 2 mg tablet 2 mg PO DAILY excessive sweating 07/27/22 02/06/24 Previous Rx's ?Medication ?Instructions ?Recorded estradiol 0.01% (0.1 mg/gram) See Rx Instructions vaginal 02/06/24 vaginal cream .COMPLEX #42.5 grams Allergies Allergy/AdvReac Type Severity Reaction Status Date / Time adhesive Allergy Verified 02/06/24 13:03 [facility] Disclaimer: The information contained in this section may have been updated after the patient was seen, as this information can be updated by other users. Medical History Pneumonia History of COVID-19 Sinus headache Migraine Anxiety Depression Arthritis History of anemia Surgical History History of breast biopsy H/O exploratory laparotomy H/O elbow surgery Hx of appendectomy History of hysterectomy Family History Father Family history of hypertension Family history of diabetes mellitus type II Grandfather Family history of Alzheimer's disease Social History Smoking Status: Current every day smoker tobacco type: cigarettes packs per day: 1 second hand exposure: No alcohol intake: never substance use type: denies use current occupational status: employed and other Travel in the last 8 weeks: None household members: spouse and family housing: house current occupation: [employer] caffeine: Yes ROS Obtained: Yes All systems reviewed & no additional complaints except as documented Physical Exam General General appearance: alert Head Head exam: atraumatic and normocephalic Eye Eye exam: Present normal appearance, PERRL and EOMI Neck Neck exam: Present normal inspection, full ROM and trachea midline Respiratory Respiratory exam: Absent respiratory distress, wheezes, stridor, accessory muscle use or prolonged expiratory phase Cardiovascular Cardiovascular exam: Present other (Pulses equal symmetric in upper and lower extremities) Abdominal Exam Abdominal exam: Present soft; Absent distention, tenderness or pulsatile mass Extremities Exam Extremities exam: Present other (Tenderness without deformity distal third right radius without outward signs of injury. Neurovascular intact with range of motion intact distally); Absent edema Neurological Exam Neurological exam: Present alert, oriented X3 and CN II-XII intact; Absent motor sensory deficit Skin Skin exam: Present warm and dry; Absent diaphoresis or erythema Medical Decision Making Medical Records Medical records reviewed: Yes I reviewed the patient's medical records. Macario Inquiry Pt receiving controlled substance: No Macario was queried for this patient: No Vital Signs: 03/09/24 07:35 03/09/24 07:37 03/09/24 08:00 Temperature 98.2 F Temperature Source Oral Pulse Rate 88 88 Pulse Rate [Radial] 78 Respiratory Rate 18 Blood Pressure 129/63 119/79 Blood Pressure [Left Arm] 129/63 Blood Pressure Mean [Left Arm] 85 Blood Pressure Source [Left Arm] Automatic Cuff Blood Pressure Position [Left Arm] Sitting 02 Sat by Pulse Oximetry 99 96 100 Oxygen Delivery Method Room Air Room Air Room Air Orders (Tests/Meds): ORDERS Category Date Time Status Wrist XR right 2 views [XR wrist RT 2V] Stat Exams 03/09/24 07:46 Taken XR forearm RT 2V Stat Exams 03/09/24 07:46 Taken Medical Decision Narrative: 43-year-old female 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 Patient states that she tripped over a Ball just prior to arrival. Hit her arm on sliding glass storm door and states that immediately started hurting. Patient is most concerned because of her previous surgery of her right upper extremity. She also states that she is generally unable to feel this area of her arm so given that it is currently hurting in the setting of generally having anesthesia and hurting modestly, at that, felt to be appropriate to get x-rays. Has not taken anything for the pain. Mild to moderate in intensity here and does not radiate. History obtained with patient. On arrival, she is hemodynamically stable and very well-appearing. She does have tenderness with no outward signs of injury or deformity distal third of right radius. No involvement of wrist or hand. Neurovascular intact proximally and distally with range of motion intact without issue. Differential includes myofascial strain, soft tissue injury, fracture, dislocation, among others. X- rays to be obtained. On independent rotation, these demonstrated no acute bony abnormality. Given this, I think this most likely related to myofascial strain in the setting of minor MSK trauma. Because patient at baseline without signs o r symptoms of clinical decompensation, deemed appropriate for discharge. Results were relayed to patient who voiced understanding and were agreeable to outpatient management and follow up. I discussed my clinical impression with patient and answered all questions. At this time, the evidence for any other entities in the differential is insufficient to warrant any further testing or ED observation. This was explained as well. Advisory was given that persistent or worsening symptoms require further evaluation. I confirmed the understanding of this discussion. County Judge disclaimer Much of this encounter note is an electronic canvas products sales representative spoken language to printed text. Electronic canvas products sales representative of the spoken language may permit errors. Although I have reviewed the note, some errors may still exist. Critical Care Critical Care Time Critical Care Time: No
[2024-03-09 08:26] VITALS: BP 119/79; PULSE 74; RESP 18; TEMP 36.8; O2SAT 99
== END 2024-03-09 08:30 | disposition home or self-care (01) ==
PROVIDERS: Emergency Provider Emergency Medicine; PCP Nurse Practitioner Family
DX: M79.631 Pain in right forearm (principal); W01.198A Fall on same level from slipping, tripping and stumbling with subsequent striking against other object, initial encounter
CPT/HCPCS: 73090; 73100; 99283

== ENCOUNTER 2024-09-25 14:25 | Outpatient (CLI) | payer OTHER, SELFPAY ==
--- NOTE | 2024-09-25 14:26 | US_ITS ---
PROCEDURE INFORMATION: Exam: US Left Breast, Complete US Right Breast, Complete MG Bilateral Diagnostic Breast Tomosynthesis Exam date and time: 09/25/2024 2:22 PM Age: 43 years old Clinical indication: Bilateral breast palpable lumps; ? Lump removed TECHNIQUE: Imaging protocol: Complete ultrasound of all four quadrants of the left breast and the retroareolar regions, including ultrasound of the axilla when performed. Complete ultrasound of all four quadrants of the right breast and the retroareolar regions, including ultrasound of the axilla when performed. Bilateral Diagnostic tomosynthesis and 2D mammography including computer-aided detection (CAD) when performed. Unilateral or bilateral exam. COMPARISON: US BREAST LT COMPLETE 06/30/2023 3:06 PM FINDINGS: MAMMOGRAPHY: Breast composition: The breasts are extremely dense, which lowers the sensitivity of mammography. Breast mammogram findings: There is no stellate mass, architectural distortion or suspicious microcalcifications in either breast to suggest malignancy. No skin thickening or axillary adenopathy. Skin markers were placed over areas of palpable concern bilaterally. No suspicious findings routine or spot compression views. ULTRASOUND: Breast ultrasound findings: Sonographic images of both breasts including the retroareolar regions, all 4 quadrants and the axilla do not demonstrate any cystic masses. Hypoechoic gently lobulated solid mass in the right 11 o'clock axis 3 cm from the nipple measures 0.6 x 0.4 x 0.4 cm in dimension. The finding is likely benign in etiology. No other solid masses noted in either breast. No architectural distortion or acoustical shadowing. No skin thickening or axillary adenopathy. IMPRESSION: Probably benign sonographically detected right breast mass. A six-month follow-up targeted right breast ultrasound is recommended to ensure stability over time. Bilateral palpable masses correspond to dense normal fibroglandular structures on mammography and sonography.Further evaluation of a palpable abnormality should be based on clinical grounds regardless of radiographic findings or lack thereof. ASSESSMENT: BI-RADS Category 3: Probably benign.
== END 2024-09-25 23:59 | disposition home or self-care (01) ==
LOC: RAD 14:26
PROVIDERS: PCP Nurse Practitioner Family; Visit Provider Surgery
DX: N63.11 Unspecified lump in the right breast, upper outer quadrant (principal)
CPT/HCPCS: 76641; 77062; 77066; G0279

== ENCOUNTER 2024-09-26 07:14 | Outpatient (CLI) | payer OTHER, SELFPAY ==
--- NOTE | 2024-09-26 07:15 | MR_ITS ---
FINAL REPORT CLINICAL HISTORY: lt elbow pain COMPARISON: None FINDINGS: Multiplanar and multisequence imaging of the left elbow was obtained without contrast. BONES: There is no acute fracture, contusion or pathologic marrow replacement. Joint space is preserved. A small joint effusion is present. No loose body is seen. LIGAMENTS: There is a tear of the radial collateral ligament. The ulnar collateral ligaments are intact. There is no fracture of the sublime tubercle. TENDON/MUSCLES: There is a high-grade partial tear of the common extensor tendon on the lateral epicondyle. The common flexor tendon is normal in size and signal intensity at its insertion on the medial epicondyle. There is an intrasubstance tear of the lateral aspect of the triceps tendon. The biceps tendon and brachialis tendons are intact. Signal intensity within the muscles themselves is normal. OTHER SOFT TISSUES: There is no abnormal mass or fluid collection. The nerves and vascular structures appear normal. IMPRESSION: Tear of the radial collateral ligament. High-grade partial tear of the common extensor tendon on the lateral epicondyle. Intrasubstance tear lateral aspect of the triceps tendon. Reviewed, Interpreted and Dictated by Amy Street MD Transcribed by Kimber Perez Authenticated and [facility]
== END 2024-09-26 23:59 | disposition home or self-care (01) ==
LOC: RAD 07:15
PROVIDERS: PCP Nurse Practitioner Family; Visit Provider Orthopaedic Surgery
DX: M77.12 Lateral epicondylitis, left elbow (principal)
CPT/HCPCS: 73221

== ENCOUNTER 2024-10-03 11:16 | Outpatient (CLI) | payer OTHER, SELFPAY ==
--- NOTE | 2024-10-03 11:42 | ECG_ITS ---
APPROVED REPORT Exam: Resting ECG HR:61 bpm ECG Measurements Heart Rate 61 AXES NH 155 P 84 QRSd 81 QRS 79 QT 398 T 71 QTc 401 Conclusion SINUS RHYTHM Atrial abnormality BORDERLINE ECG UNCONFIRMED REPORT Electronically signed by : Tej Lai MD 10/03/2024 17:23:53
[2024-10-03 11:48] VITALS: BMI 16.7
[2024-10-03 11:57] LABS: Basophils # 0.1 K/mm3 (0-0.2); Basophils % 0.7 % (0.1-2.0); Chloride 104 mmol/L (98-107); Eosinophils # 0.1 K/mm3 (0.0-0.4); Eosinophils % 1.3 % (0.1-12.0); Hematocrit 40.6 % (37.0-47.0); Hemoglobin 13.8 g/dL (12.2-16.2); Lymphocytes # 1.8 K/mm3 (0.7-4.5); Lymphocytes % 25.8 % (10-50); Mean Corpuscular Hemoglobin 32.5 pg (27.0-31.2); Mean Corpuscular Volume 95.8 fl (81-99); Mean Platelet Volume 10.2 fl (7.4-10.4); Monocytes # 0.7 K/mm3 (0.1-1.0); Monocytes % 9.7 % (1.7-9.3); Neutrophils # 4.4 K/mm3 (1.8-7.8); Neutrophils % 62.2 % (37.0-80.0); Platelet Count 248 K/mm3 (142-424); Red Blood Count 4.24 M/mm3 (4.20-5.40); Red Cell Distribution Width 12.2 % (11.5-17.5); Sodium 138 mmol/L (136-145); White Blood Count 7.1 K/mm3 (4.8-10.8)
[2024-10-03 12:00] LABS: Blood Urea Nitrogen 7 mg/dl (7-17); Creatinine Clearance Estimated 83 mL/min (50-200); Estimated Glomerular Filt Rate 92 ml/min (>60); GFR (African American) 112 ML/MIN (>60)
[2024-10-03 12:01] LABS: Calcium 9.1 mg/dl (8.4-10.2); Carbon Dioxide 30 mmol/L (22.0-30.0); Glucose 85 mg/dl (74-100)
== END 2024-10-03 23:59 | disposition home or self-care (01) ==
LOC: PREOP 11:17
PROVIDERS: PCP Nurse Practitioner Family; Visit Provider Surgery
DX: Z01.810 Encounter for preprocedural cardiovascular examination (principal); N64.4 Mastodynia; R94.31 Abnormal electrocardiogram [ECG] [EKG]
CPT/HCPCS: 80048; 85025; 93005

== ENCOUNTER 2024-10-04 07:12 | Day surgery (SDC) | payer OTHER, SELFPAY ==
[2024-10-03 11:51] VITALS: BMI 16.7
[2024-10-04] VITALS (10 sets, daily range): BP systolic 100–116; BP diastolic 48–76; PULSE 74–105; RESP 16–26; TEMP 36.5–36.8; O2SAT 99–100; BMI 17.9
[2024-10-04] MEDS: 0.9 % SODIUM CHLORIDE 1000ML 1,000 ML 25 ML IV (07:43)
--- NOTE | 2024-10-04 07:51 | P.PNANES_ITS ---
[facility] Disclaimer: The information contained in this section may have been updated after the patient was seen, as this information can be updated by other users. Medical History Pneumonia History of COVID-19 Sinus headache Migraine Anxiety Depression Arthritis History of anemia Surgical History History of breast biopsy H/O exploratory laparotomy H/O elbow surgery Hx of appendectomy History of hysterectomy Family History Father Family history of hypertension Family history of diabetes mellitus type II Grandfather Family history of Alzheimer's disease Social History Smoking Status: Current every day smoker tobacco type: cigarettes packs per day: 1 second hand exposure: No alcohol intake: never substance use type: denies use current occupational status: employed Travel in the last 8 weeks: None household members: spouse and family housing: house current occupation: [employer] caffeine: Yes Have you lived/traveled outside US in past 30 days?: No Contact w/someone who lives/traveled outside US past 30 days?: No Exposure to someone with infectious disease in past 14 days?: No Do you have a fever (greater than 100.4 F or 38 C)?: No Have you tested positive for COVID-19: No Exposed to someone with COVID-19 in past 14 days?: No Do you have a sore throat?: No Do you have a cough?: No Do you have any weakness?: No Do you have any diarrhea?: No Are you experiencing any unusual bleeding?: No Do you have any muscle aches/pain?: No Do you have any abdominal pain?: No Are you experiencing loss of taste or smell?: No [facility] Anesthesia Checklist Patient Identification Patient Identification: Arm Band Structural Data Admitted From: Home Planned Operative Procedure/s: Excision of Chest Wall Lesion Consent for Planned Operative Procedure(s) Verified: Yes Verified Documents: Surgical Consent and History and Physical NPO Status Verified Time NPO: 00:00 Additional verifications Anesthesia Reactions: Yes (N/V) Hx Blood Transfusions: No Blood Transfusion Reaction: No Airway Assessment Mallampati Score:: Class II C-Spine Mobility Assessed: Yes TMJ Mobility Assessed: Yes Dentition: Good Dentition Neurological Assessment Level of Consciousness: Awake, Alert and Appropriate Anesthesia Plan Anesthesia Risk discussed: Yes Anesthesia Plan: Verified ASA Class: II Anesthesia Type: General
[2024-10-04] MEDS: CEFAZOLIN SODIUM 1 GM in 0.9 % SODIUM CHLORIDE 50 ML IV (08:08)
[2024-10-04] MEDS: LIDOCAINE 1% 20ML MDV 20 ML (08:36)
--- NOTE | 2024-10-04 08:54 | EXP.OP.NOTE ---
Date of procedure: 10/04/24 Pre-op Diagnosis:: Left inferior breast/chest wall lesion Post-op Diagnosis:: Same Procedure performed:: Excision of left inferior breast/chest wall Surgeon:: Bharathi Padilla MD TELEVISION ANNOUNCER:: Fabrizio Garcia Anesthesia: local and LMA Estimated blood loss (mL): 5 Operative findings:: Palpable nodularity and surrounding breast tissue excised Operative note:: After informed consent was obtained the patient was taken to the operating room and placed in the supine position. General anesthesia with laryngeal mask airway was achieved. Her left breast/chest was prepped and draped in a sterile fashion. After infiltration with local anesthetic a slightly curvilinear incision was made over the palpable nodularity. The underlying nodularity with surrounding breast tissue was excised utilizing electrocautery. The specimen was marked for superior and lateral margins with dyed suture (short superior/long lateral). It was marked for superficial and deep margins with non-dyed suture (short superficial/long deep). An additional extended deep/medial margin was removed in a similar manner secondary to additional palpable nodularity. Both specimens were passed off for pathologic evaluation. Electrocautery was utilized to achieve hemostasis and the wound was irrigated. The deep subcutaneous tissue was reapproximated with interrupted Vicryl. Skin was then closed with 4-0 Monocryl in a running subcuticular manner. Dressings were applied and patient was transferred to recovery in stable condition. Condition: stable Disposition: PACU Specimens:: Left inferior breast/chest wall mass Complications:: No immediate
--- NOTE | 2024-10-04 09:00 | P.PNANES_ITS ---
[facility] Anesthesia Record Part I Anesthesia Record I Intake, IV Amount: 400 Hydration: Adequate Estimated blood loss (mL): 2 Urine output (mL): 0 Blood Products used (#): none Blood Pressure: 101/62 SaO2: 100 Pulse Rate: 105 Airway Patency: Patent Respiratory Rate: 26 Temperature: 98.3 F Patient is:: Drowsy and Stable Stable to PACU at:: 08:55
--- NOTE | 2024-10-04 09:42 | EXP.ANES.II ---
[facility] Anesthesia Record Part II Anesthesia Record Part II Discharge Time: 09:25 Destination: Surgical Day Care (OP Surgery) PACU nurse assessment reviewed?: Yes Patient Condition:: Good Anesthesia Complications:: None Swallowing reflex intact?: Yes Airway Patency: Patent Cyanosis?: No Blood Pressure: 110/69 SaO2: 100 Respiratory Rate: 16 Pulse Rate: 86 Temperature: 98.3 F Mental Status: Alert & Oriented Pain level:: 0 Nausea and/or vomitting:: None Intake, IV Amount: 0 Hydration: Adequate
--- NOTE | 2024-10-04 10:05 | SUR.PHASEII ---
37- called by Dewayne Cooper RN who is [facility] in post op wiht the patient in regard to surgical dressing [phone]- this RN arrived to post-op to assess dressing. Upon pulling steri strips off (per Dr Padilla due to adhesive allergy) incision site opened to roughly the size of a quarter. Dr padilla's office called immediately to see what he wanted up to do. 940- Dr Padilla called post op and asked this Rn to send a photo of incision to his cell phone. 42- this RN asked patient if it was okay to send a photo of her incision to Dr Padilla. Patient consented, Julián Burris RN also witnessed consent. 44- Dr Padilla called back and gave verbal orders to place alcohol pad on the incision site, remove remaining steri-strips, place new sterile 4x4 and continue with a pressure dressing. verbal orders repeated and correct. Alcohol placed on incision and remaining steri strips removed. incision was wipe dwith new alcohol soaked 4x4. New dry 4x4's places sterilely, Abd pad placed over 4x4's, patinet then wrapped with kerlix, and then a single layer of coban (not tight) to ensure things stay in place. Patient educated to remove dressings in 48 hours, and follow-up with Dr Padilla next Tuesday.
== END 2024-10-04 10:00 | disposition home or self-care (01) ==
PROVIDERS: PCP Nurse Practitioner Family; Visit Provider Surgery
PROC: (CPT 19120; principal; 2024-10-04 09:05)
DX: N63.20 Unspecified lump in the left breast, unspecified quadrant (principal)
CPT/HCPCS: 19120; 96374; J1100; J2250; J2405; J3010; J7030

== ENCOUNTER 2024-10-29 06:40 | Day surgery (SDC) | payer OTHER, SELFPAY ==
[2024-10-22 11:48] VITALS: BMI 16.2
[2024-10-29] VITALS (11 sets, daily range): BP systolic 100–137; BP diastolic 48–80; PULSE 54–91; RESP 16–22; TEMP 36.3–36.8; O2SAT 99–100
[2024-10-29] MEDS: LACTATED RINGERS 1000ML 1,000 ML 100 ML IV (07:04)
[2024-10-29] MEDS: CEFAZOLIN SODIUM 2 GM in 0.9 % SODIUM CHLORIDE 100 ML IV (07:43)
[2024-10-29] MEDS: BUPIVACAINE 0.5% 30ML VIAL 150 MG (08:05)
--- NOTE | 2024-10-29 08:37 | EXP.OP.NOTE ---
Date of procedure: 10/29/24 Pre-op Diagnosis:: Left elbow chronic lateral epicondylitis partial tear common extensor tendon origin Post-op Diagnosis:: Same Procedure performed:: Left elbow percutaneous ultrasound-guided tenotomy (Tenex) lateral epicondyle Surgeon:: Brian Garcia DO COTTON BAG SEWER:: Fabrizio Garcia Anesthesia: GETA Estimated blood loss (mL): 0 Operative findings:: See dictation Operative note:: Patient was identified preoperatively. Left elbow marked with a yes and my initials. Transferred operative suite placed upon operating bed. General anesthesia administered airway secured. Hand table was placed left upper extremity prepped and draped in normal sterile fashion. Once prepped and draped final operative timeout performed to identify proper patient procedure and extremity. Everyone involved in the case agreed. There is no counter indications to beginning. Marking pen was used to elías the bony landmarks of the elbow lateral epicondyle common extensor tendon origin. The Tenex system was passed off and plugged then the ultrasound machine was draped sterilely. Evaluation of the common extensor tendon origin was then performed with the ultrasound. Edge of the lateral epicondyle was performed evaluation of the common extensor tendon origin was then visualized on the ultrasound. Areas of hyperechoic signal identified on direct visualization with the ultrasound. Needle was utilized for local anesthesia and visualize directly on the ultrasound needle was placed to the hyperechoic area and the skin incision local anesthesia infiltrated. Skin knife 11 blade was used to marisol the skin the Tenex handpiece was then selected and placed under direct visualization with the ultrasound to reach this hyperechoic area of the common extensor tendon origin. This was visualized on the ultrasound the cutting mechanism was utilized with the foot piece to debride the area of hyperechoic signal. This was directly visualized on the ultrasound total cutting time for procedure 41 seconds. Once complete the probe was removed. Steri-Strip dressing placed over the stab incision with sterile Tegaderm. Patient waken anesthesia taken recovery stable condition. Condition: stable Disposition: PACU Complications:: None apparent
--- NOTE | 2024-10-29 08:40 | P.PNANES_ITS ---
[facility] Disclaimer: The information contained in this section may have been updated after the patient was seen, as this information can be updated by other users. Medical History Pneumonia History of COVID-19 Sinus headache Migraine Anxiety Depression Arthritis History of anemia Surgical History History of breast biopsy H/O exploratory laparotomy H/O elbow surgery Hx of appendectomy History of hysterectomy Family History Father Family history of hypertension Family history of diabetes mellitus type II Grandfather Family history of Alzheimer's disease Social History Smoking Status: Current every day smoker tobacco type: cigarettes packs per day: 1 second hand exposure: No alcohol intake: never substance use type: denies use current occupational status: employed Travel in the last 8 weeks: None household members: spouse and family housing: house current occupation: [employer] caffeine: Yes Have you lived/traveled outside US in past 30 days?: No Contact w/someone who lives/traveled outside US past 30 days?: No Exposure to someone with infectious disease in past 14 days?: No Do you have a fever (greater than 100.4 F or 38 C)?: No Have you tested positive for COVID-19: No Exposed to someone with COVID-19 in past 14 days?: No Do you have a sore throat?: No Do you have a cough?: No Do you have any weakness?: No Do you have any diarrhea?: No Are you experiencing any unusual bleeding?: No Do you have any muscle aches/pain?: No Do you have any abdominal pain?: No Are you experiencing loss of taste or smell?: No [facility] Anesthesia Checklist Patient Identification Patient Identification: Arm Band and Family Structural Data Admitted From: Home Planned Operative Procedure/s: Percutaneous ultrasound guided tenotomy common extensor tendon origen. Consent for Planned Operative Procedure(s) Verified: Yes Verified Documents: Surgical Consent and History and Physical NPO Status Verified Time NPO: 00:00 Additional verifications Patient : No Anesthesia Reactions: Yes (N/V) Hx Blood Transfusions: No Blood Transfusion Reaction: No Cephalosporin Allergy: No Previous Colonoscopy: Yes Airway Assessment Mallampati Score:: Class II C-Spine Mobility Assessed: Yes TMJ Mobility Assessed: Yes Dentition: Good Dentition Neurological Assessment Level of Consciousness: Awake, Alert, Appropriate and Follows Commands Hx Seizures: No Numbness or tingling in extremities: No Anesthesia Plan Anesthesia Risk discussed: Yes ASA Class: II Anesthesia Type: General
--- NOTE | 2024-10-29 08:43 | EXP.ANES.I ---
[facility] Anesthesia Record Part I Anesthesia Record I Intake, IV Amount: 1,300 Hydration: Adequate Estimated blood loss (mL): 0 Urine output (mL): 0 Blood Products used (#): none Blood Pressure: 115/58 SaO2: 100 Pulse Rate: 91 Airway Patency: Patent Respiratory Rate: 22 Temperature: 97.4 F Patient is:: Drowsy and Stable Stable to PACU at:: 08:32
--- NOTE | 2024-10-29 12:13 | EXP.ANES.II ---
[facility] Anesthesia Record Part II Anesthesia Record Part II Discharge Time: 09:02 Destination: Surgical Day Care (OP Surgery) PACU nurse assessment reviewed?: Yes Patient Condition:: Good Anesthesia Complications:: None Swallowing reflex intact?: Yes Airway Patency: Patent Cyanosis?: No Blood Pressure: 115/72 SaO2: 100 Respiratory Rate: 16 Pulse Rate: 69 Temperature: 97.4 F Mental Status: Alert & Oriented Pain level:: 0 Nausea and/or vomitting:: None Intake, IV Amount: 0 Hydration: Adequate
== END 2024-10-29 09:40 | disposition home or self-care (01) ==
PROVIDERS: PCP Nurse Practitioner Family; Visit Provider Orthopaedic Surgery
PROC: (CPT 24357; principal; 2024-10-29 08:15)
DX: M77.12 Lateral epicondylitis, left elbow (principal)
CPT/HCPCS: 24357; 96374; C9144; J0690; J1100; J2250; J2405; J3010; J7120

== ENCOUNTER 2025-04-11 15:27 | Outpatient (CLI) | payer OTHER, SELFPAY ==
--- OUTSIDE RECORDS SUMMARY | 2024-04-17 11:00 | XMS_ITS | Continuity of Care Document ---
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 Name Role Phone Adrian MSN, PROFESSOR OF FINE ART, Maura Unavailable Unavai lable Allergies, Adverse Reactions, Alerts Substance Reaction Status Criticality NO KNOWN ALLERGIES Active No Inform ation Medications Medication Instructions Dosage Effective Dates (start - stop) Status Comments nystatin 100,000 unit/mL oral suspension take 5 milliliter by oral route 4 times every day [id number] UNITS - Active MELOXICAM 15 MG TABLET TAKE ONE TABLET BY MOUTH ONCE A DAY - Active Flomax 0.4 mg capsule take 1 capsule by oral route every day 1/2 hour following the same meal each day 0.4 MG - Active Pyridium 200 mg tablet take 1 tablet by oral route 3 times every day after meals as needed 200 MG - Active cephalexin 500 mg tablet take 1 tablet by oral route every 6 hours 500 MG - Active mupirocin 2 % topical ointment apply by topical route 2 times every day a small amount to the affected area Not Available - Active rosuvastatin 10 mg tablet take 1 tablet by oral route every day 10 MG - Active Pristiq 100 mg tablet,extended release take 1 tablet by oral route every day 100 MG - Active glycopyrrolate 2 mg tablet TAKE ONE TABLET BY MOUTH EVERY NIGHT AT BEDTIME - Active buspirone 10 mg tablet TAKE ONE TABLET BY MOUTH 3 TIMES A DAY NEEDED - Active Vitamin D3 50 mcg (2,000 unit) capsule TAKE ONE CAPSULE BY MOUTH ONCE A DAY - Active acyclovir 400 mg tablet Take 1 tablet, two times a daily - Active Procedures Procedure Date Vitamin b12 injection THER/PROPH/DIAG INJ, SC/IM Advance Directives Directive Yes / No Effective Date File Name No Information Encounters Encounter Description Practice Location Reason(s) For Visit Diagnoses Date Provider [facility], [address] [place] [address], [facility], tel:[phone] [facility] [place] B12 INJECTION (chief complaint) Vitamin B12 deficiency anemia, unspecified Apr- 4 Campbell Maura. [address], [place], [id number] , [place]. tel: [phone] [place] [address], [address] [place] [address], [facility], tel:[phone] [facility] [place] No Information 4 Campbell Maura. [address], [place], [id number] , [place]. tel: [phone] [facility], [address] [place] [address], [facility], tel:[phone] 57 [facility] [place] No Information 4 Campbell Maura. [address], [place], [id number] , [place]. tel: [phone] [facility], [address] [place] [address], [facility], [place] tel:[phone] [facility] [place] Renal stoneAbdominal pain 4 Campbell Maura. [address], [place], [id number] , [place]. tel: [phone] [facility], [address] [place] [address], [facility], tel:[phone] [facility] [place] Abdominal pain December-0 4 Campbell Maura. [address], [place], [id number] , [place]. tel:[phone] [facility], [address] [place] [address], [facility], [place] tel:[phone] [facility] [place] dysuria (chief complaint) DysuriaAbdominal painVitamin B12 deficiency anemia, unspecifiedBody mass index [BMI] 19.9 or less, adultExtreme poverty 4 Campbell Maura. [address], [place], [address] , [place]. tel: [phone] [facility], [address] [place] [address], [facility], [place] tel:[phone] [facility] [place] CYST (chief complaint)re fills (chief complaint) Cutaneous abscess of faceAnxiety disorder, unspecifiedHyperlipidem iaVitamin B12 deficiency anemia, unspecified Oct-0 4 Campbell Maura. [address], [place], [id number] , [place]. tel: [phone] [facility], [address] [place] [address], [address], [place] tel:[phone] [facility] [place] B12 INJECTION (chief complaint) Vitamin B12 deficiency anemia, unspecified 4 Campbell Maura. [address], [place], [address] , [place]. tel: [phone] [facility], [address] [place] [address], [address], [place] tel:[phone] [facility] [place] Monthly B12 inj (chief complaint) Vitamin B12 deficiency anemia, unspecified 4 Campbell Maura. [address], [place], [address] , [place]. tel:[phone] [facility], [address] [place] [address], [facility], tel:[phone] [facility] [place] B12 INJECTION (chief complaint) Vitamin B12 deficiency anemia, unspecified 2 3 Campbell Maura. [address] [place], [place], [address] [place] [address] , [place]. tel:[phone] [facility], [address] [place] [address], [facility], [place] tel:[phone] [facility] [place] B12 INJECTION (chief complaint) Vitamin B12 deficiency anemia, unspecified 3 Campbell Maura. [address] [place], [place], [address] [place] [address] , [place]. tel:[phone] [facility], [address] [place] [address], [facility], tel:[phone] [facility] [place] Unspecified lump in the left breast, lower inner quadrant May- 0-202 3 Campbell Maura. [address] [place], [place], [address] [place] [address] , [place]. tel:[phone] [place] [address], [address] [place] [address], [facility], tel:[phone] [facility] [place] lump on breast (chief complaint) Unspecified lump in the left breast, lower inner quadrantVitamin B12 deficiency anemia, unspecifiedEncounter for screening for depressionEncounter for screening examination for other mental health and behavioral disordersBody mass index [BMI] 19.9 or less, adult May- 6 3 Campbell Maura. [address] [place], [place], [address] [place] [address] , [place]. tel:[phone] [facility], [address] [place] [address], [facility], [place] tel:[phone] [facility] [place] congestion (chief complaint) Vitamin B12 deficiency anemia, unspecifiedAcute upper respiratory infection, unspecifiedNicotine dependence, cigarettes, uncomplicated 3 Campbell Maura. [address], [place], [id number] , [place]. tel: [phone] [facility], [address] [place] [address], [facility], [place] tel:[phone] [facility] [place] INJECTION (chief complaint) Vitamin B12 deficiency anemia, unspecified 3 Campbell Maura. [address], [place], [address] , [place]. tel: [phone] [facility], [address] [place] [address], [facility], [place] tel:[phone] 57 [facility] [place] INJECTION (chief complaint) Vitamin B12 deficiency anemia, unspecified 3 Campbell Maura. [address], [place], [address] , [place]. tel: [phone] [facility], [address] [place] [address], [facility], [place] tel:[phone] [facility] [place] SWOLLEN LYMPH NODE (chief complaint) Body mass index [BMI] 19.9 or less, adultAcute lymphadenitis of axilla 3 Campbell Maura. [address], [place], [address] , [place]. tel: [phone] [facility], [address] [place] [address], [facility], [place] tel:[phone] [facility] [place] B12 INJECTION (chief complaint) Vitamin B12 deficiency anemia, unspecified 3 Campbell Maura. [address], [place], [address] , [place]. tel: [phone] [facility], [address] [place] [address], [facility], [place] tel:[phone] [facility] [place] B12 INJECTION (chief complaint) Vitamin B12 deficiency anemia, unspecifiedPain in right shoulder December- 3 Campbell Maura. [address], [place], [address] , . tel: [phone] [facility], [address] [place] [address], [facility], tel:[phone] [facility] [place] shoulder pain and b12 #4 (chief complaint) Pain in right shoulderVitamin B12 deficiency anemia, unspecifiedBody mass index [BMI] 19.9 or less, adult December- 3 Campbell Maura. [address], [place], [address] , . tel: [phone] [facility], [address] [place] [address], [facility], tel:[phone] [facility] [place] Injection only (chief complaint) Vitamin B12 deficiency anemia, unspecified December- 3 Campbell Maura. [address], [place], [address] , [place]. tel: [phone] [facility], [address] [place] [address], [facility], tel:[phone] [facility] [place] B12 INJECTION (chief complaint) Vitamin B12 deficiency anemia, unspecified Apr- 3 Campbell Maura. [address], [place], [address] , [place]. tel: [phone] [facility], [address] [place] [address], [facility], [place] tel:[phone] [facility] [place] follow up labs (chief complaint) Vitamin B12 deficiency anemia, unspecifiedHyperlipidem iaNicotine dependence, cigarettes, uncomplicatedGERD disease w/ esophagitis, w/o bleeding Nov- 3 Campbell Maura. [address], [place], [address] , [place]. tel: [phone] [facility], [address] [place] [address], [facility], [place] tel:[phone] [facility] [place] 6 month lab collection (chief complaint) Encounter for screening for diseases of the blood and blood-forming organs and certain disorders involving the immune mechanismHyperlipidemia , unspecified 3 Campbell Maura. [address], [place], [address] , [place]. tel: [phone] [facility], [address] [place] [address], [facility], [place] tel:[phone] [facility] [place] swollen lymph node (chief complaint) Symptom involving the musculoskeletal systemLocalized enlarged lymph nodesPain in lt shoulderEncounter for screening, unspecified 3 Campbell Maura. [address], [place], [address] , [place]. tel: [phone] [facility], [address] [place] [address], [facility], [place] tel:[phone] [facility] [place] Major Depressive Disorder, Single episode, Unspecified 3 Campbell Maura. [address], [place], [address] , [place]. tel: [phone] [facility], [address] [place] [address], [facility], [place] tel:[phone] [facility] [place] f/u Echo (chief complaint) Anxiety disorder, unspecifiedMedical surveillance following completed txEncounter for screening for depressionEncounter for screening examination for other mental health and behavioral disorders 2 Campbell Maura. [address], [place], [address] , [place]. tel: [phone] [facility], [address] [place] [address], [facility], tel:[phone] [facility] [place] follow up (chief complaint) PleurisyAbnormal EKGEncounter for mental health service for victim of partner psychological abuse 2 Campbell Maura. [address], [place], [id number] , [place]. tel: [phone] [facility], [address] [place] [address], [facility], tel:[phone] [facility] [place] Chest Pain (chief complaint) Chest painAbnormal EKG 2 Campbell Maura. [address], [place], [address] , [place]. tel: [phone] [facility], [address] [place] [address], [facility], tel:[phone] [facility] [place] Follow up on medication (chief complaint) Major Depressive Disorder, Single episode, UnspecifiedCellulitis of unspecified fingerGeneralized hyperhidrosisHyperlipid emia, unspecified 2 Campbell Maura. [address], [place], [address] , [place]. tel: [phone] [facility], [address] [place] [address], [facility], [place] tel:[phone] [facility] [place] FOLLOW UP ON MEDICATION (chief complaint) Major Depressive Disorder, Single episode, UnspecifiedDysuria 2 Campbell Maura. [address], [place], [address] , [place]. tel: [phone] [facility], [address] [place] [address], [facility], [place] tel:[phone] [facility] [place] Follow up on labs (chief complaint) Anxiety disorder, unspecified 2 Campbell Maura. [address], [place], [address] , . tel:[phone], [facility], tel:[phone] [facility] [place] FASTING LABS (chief complaint) Encounter for screening for diseases of the blood and blood-forming organs and certain disorders involving the immune mechanismVitamin B12 deficiency anemia, unspecified 2 Campbell Maura. [address], [place], [address] , [place]. tel:[phone], [facility], tel:[phone] [facility] [place] follow up on medications (chief complaint)fa tigue (chief complaint)An xiety (chief complaint) Body mass index [BMI] 19.9 or less, adultAnxiety disorder, unspecifiedFatigue 2 Campbell Maura. [address], [place], [address] , . tel:[phone], [facility], tel:[phone] [facility] [place] Cellulitis of unspecified fingerHerpesviral vesicular dermatitisHyperlipidemi a, unspecifiedGeneralized hyperhidrosisEncounter for screening for other metabolic disordersEncounter for screening for oth suspected endocrine disorderPerson encountering health service in other specified circumstanceEncounter for screening examination for other mental health and behavioral disordersEncounter for screening for nutritional disorderEncounter for screening for diseases of the blood and blood-forming organs and certain disorders involving the immune mechanismVitamin B12 deficiency anemia, unspecifiedEncounter for screening for depressionEncounter for screening for lipoid disordersEncounter for screening for human immunodeficiency virusMajor Depressive Disorder, Single episode, UnspecifiedAnxiety disorder, unspecified 2 Campbell Maura. [address], [place], [address] , [place]. tel:[phone] [facility], [address] [place] [address], [address], [place] tel:[phone] [facility] [place] No Information 2 Campbell Maura. [address], [place], [address] , [place]. tel: [facility], [address] [place] [address], [facility], [place] tel:[phone] [facility] [place] No Information 2 Campbell Maura. [address], [place], [address] , [place]. tel: [facility], [address] [place] [address], [facility], [place] tel:[phone] [facility] [place] No Information 2 Campbell Maura. [address], [place], [address] , [place]. tel: [facility], [address] [place] [address], [facility], [place] tel:[phone] [facility] [place] No Information 1 Campbell Maura. [address], [place], [address] , [place]. tel:[phone] [facility], [address] [place] [address], [address], [place] tel:[phone] [facility] [place] No Information 1 Campbell Maura. [address], [place], [address] , [place]. tel:[phone] [facility], [address] [place] [address], [facility], [place] tel:[phone] [facility] [place] No Information 1 Adrian Lorenzo. [address], [place], [address] , . tel: [phone] [facility], [address] [place], [address], tel:[phone] [facility] [place] No Information 1 Adrian Lorenzo. [address], [place], [address] , [place]. tel: [phone] Family History Family Member Type Diagnosis Age At Onset Father Problem hypertension Sister Problem anxiety Mother Problem asthma Paternal grandmother Problem Kidney failure and h eart disease Father Problem Heart Disease Paternal grandmother Problem hypothyroidism Maternal grandmother Problem hyperthyroidism Sister Problem depression Mother Problem Anxiety and Postural tachyca rdia syndrome Maternal grandfather Problem Alive and well Paternal grandfather Problem passed d/t Cirrhosis -non alcoholic Father Problem Diabetes mellitus Immunizations Vaccine Date Status Comments Moderna refused Source: New Imm unization Record Influenza Flulaval refused Source: N ew Immunization Record Hep A, adult administered Source: Other R egistry Influenza Quad Inj administered Source: O ther Registry Influenza Quad Inj administered Source: O ther Registry Hep A, adult administered Source: Other R egistry Td administered Source: Other R egistry Influenza, Seasonal administered Source: Other Registry Influenza, Seasonal administered Source: Other Registry Payers Payer name Insurance type Covered republican ID Authoriza tion(s) Hc- Medicaid Wellcare [facility] [id number] [facility]- Medicaid Well[employer] [place] Payer [id number] [facility]- Medicaid [employer] [facility] [id number] [place]- Medicaid [employer] Wrap Payer [id number] [place]- Medicaid [employer] [facility] [id number] Hch- Medicaid [employer] W[employer] Payer [id number] Social History Type Description Quantity Date Captured Comments Alcohol Use Details No Caffeine Use Details coffee and soda 3 cups per day Tobacco Use Status Smoking Status Heavy tobacco smoker Sex Female Sexual Orientation Straight or heterosexual Apr Gender Identity Female Chief Complaint And Reason For Visit From encounter dated '04/17/2024 15:00'. B12 INJECTION (chief complaint). Description: MARIANNE IS HERE TODAY TO RECEIVE HER MONTHLY B12 INJECTION. ADMINISTERED INTO LEFT DELTOID. PT TOLERATED WELL, BAND AID APPLIED. PT IS SCHEDULED TO RTC IN1 MONTH TO RECEIVE HER NEXT MONTHLY B12 INJECTION. Plan Of Treatment Date Type Action Status Goal Tobacco Use Scre ening. Due on due Goal Drug Abuse Scree lashaun Test (DAST). Due on due Goal CMP. Due on due Goal Vitamin B12. Due on 024 due Goal Vitamin D. Due on due Goal HIV screen due Goal Pap/HPV testing. Due on due Goal Follow up Plan f or abnormal BMI (Less than 18.5, greater than 25). Due on due Goal HPV testing. Due on 020 due Goal Tobacco Use Cess ation Counseling. Due on due Goal TSH. Due on due Goal Influenza vaccine. Due on due Goal PAP. Due on due Goal Lipid panel. Due on 028 due Goal Depression scree lashaun. Due on due Goal Diabetes screening. Due on A due Goal Unhealthy drug use screening due Goal HPV. Due on due Goal Mammogram. Due on due Goal Drug Abuse Scree lashaun Test (DAST-10). Due on due Goal Generalized Anxi ety Disorder - 7 (GIANFRANCO-7). Due on due Goal Obtain Height, W eight, and BMI. Due on due Goal CBC. Due on due Goal Hepatitis C Scre ening. Due on due Goal Tobacco Use Cess ation Counseling. Due on due Goal Influenza vaccine. Due on due Goal CMP. Due on due Goal Follow up Plan f or abnormal BMI (Less than 18.5, greater than 25). Due on due Goal Vitamin B12. Due on 024 due Goal HPV testing. Due on 020 due Goal Mammogram. Due on due Goal HIV screen due Goal Vitamin D. Due on due Goal Diabetes screening. Due on A due Goal TSH. Due on due Goal Depression scree lashaun. Due on due Goal Drug Abuse Scree lashaun Test (DAST-10). Due on due Goal Drug Abuse Scree lashaun Test (DAST). Due on due Goal Obtain Height, W eight, and BMI. Due on due Goal PAP. Due on due Goal Unhealthy drug use screening due Goal HPV. Due on due Goal Generalized Anxi ety Disorder - 7 (GIANFRANCO-7). Due on due Goal Tobacco Use Scre ening. Due on due Goal CBC. Due on due Goal Pap/HPV testing. Due on due Goal Lipid panel. Due on due Goal Hepatitis C Scre ening. Due on due Goal HIV screen due Goal TSH. Due on due Goal Tobacco Use Cess ation Counseling. Due on due Goal Vitamin D. Due on due Goal HPV testing. Due on due Goal Obtain Height, W eight, and BMI. Due on due Goal CMP. Due on due Goal Hepatitis C Scre ening. Due on due Goal Diabetes screening. Due on A due Goal Influenza vaccine. Due on No due Goal Drug Abuse Scree lashaun Test (DAST). Due on due Goal PAP. Due on due Goal Tobacco Use Scre ening. Due on due Goal Drug Abuse Scree lashaun Test (DAST-10). Due on due Goal Unhealthy drug use screening due Goal HPV. Due on due Goal Generalized Anxi ety Disorder - 7 (GIANFRANCO-7). Due on due Goal Mammogram. Due on due Goal Pap/HPV testing. Due on due Goal Follow up Plan f or abnormal BMI (Less than 18.5, greater than 25). Due on due Goal Lipid panel. Due on 028 due Goal CBC. Due on due Goal Depression scree lashaun. Due on due Goal Vitamin B12. Due on due Goal HPV. Due on due Goal Follow up Plan f or abnormal BMI (Less than 18.5, greater than 25). Due on due Goal Pap/HPV testing. Due on due Goal Tobacco Use Cess ation Counseling. Due on due Goal CMP. Due on due Goal HPV testing. Due on 020 due Goal HIV screen due Goal Vitamin D. Due on due Goal Obtain Height, W eight, and BMI. Due on due Goal Vitamin B12. Due on due Goal Influenza vaccine. Due on due Goal CBC. Due on due Goal Mammogram. Due on due Goal Tobacco Use Scre ening. Due on due Goal Generalized Anxi ety Disorder - 7 (GIANFRANCO-7). Due on due Goal Drug Abuse Scree lashaun Test (DAST). Due on due Goal Drug Abuse Scree lashaun Test (DAST-10). Due on due Goal Unhealthy drug use screening due Goal Diabetes screening. Due on A due Goal PAP. Due on due Goal TSH. Due on due Goal Hepatitis C Scre ening. Due on due Goal Lipid panel. Due on due Goal Depression scree lashaun. Due on due Goal HPV testing. Due on due Goal HIV screen due Goal Mammogram. Due on 7 due Goal CMP. Due on due Goal Vitamin D. Due on due Goal Tobacco Use Scre ening. Due on due Goal Pap/HPV testing. Due on due Goal PAP. Due on due Goal Influenza vaccine. Due on due Goal Follow up Plan f or abnormal BMI (Less than 18.5, greater than 25). Due on due Goal Hepatitis C Scre ening. Due on due Goal TSH. Due on due Goal Drug Abuse Scree lashaun Test (DAST-10). Due on due Goal CBC. Due on due Goal Lipid panel. Due on due Goal Unhealthy drug use screening due Goal Tobacco Use Cess ation Counseling. Due on due Goal Obtain Height, W eight, and BMI. Due on due Goal Generalized Anxi ety Disorder - 7 (GIANFRANCO-7). Due on due Goal Vitamin B12. Due on due Goal Depression scree lashaun. Due on due Goal Drug Abuse Scree lashaun Test (DAST). Due on due Goal HPV. Due on due Goal Diabetes screening. Due on A due Goal Lifestyle education regardin g diet completed Goal HPV. Due on due Goal Hepatitis C Scre ening. Due on due Goal Obtain Height, W eight, and BMI. Due on due Goal Drug Abuse Scree lashaun Test (DAST). Due on due Goal HIV screen due Goal Mammogram. Due on due Goal Generalized Anxi ety Disorder - 7 (GIANFRANCO-7). Due on due Goal Pap/HPV testing. Due on due Goal Diabetes screening. Due on A due Goal Drug Abuse Scree lashaun Test (DAST-10). Due on due Goal Vitamin B12. Due on due Goal PAP. Due on due Goal Unhealthy drug use screening due Goal Tobacco Use Cess ation Counseling. Due on due Goal Lipid panel. Due on due Goal Follow up Plan f or abnormal BMI (Less than 18.5, greater than 25). Due on due Goal Influenza vaccine. Due on due Goal HPV testing. Due on due Goal Vitamin D. Due on due Goal Depression scree lashaun. Due on due Goal TSH. Due on due Goal CBC. Due on due Goal Tobacco Use Scre ening. Due on due Goal CMP. Due on due Goal Hepatitis C Scre ening. Due on due Goal Depression scree lashaun. Due on due Goal Follow up Plan f or abnormal BMI (Less than 18.5, greater than 25). Due on due Goal PAP. Due on due Goal Mammogram. Due on due Goal Influenza vaccine. Due on due Goal CBC. Due on due Goal Vitamin D. Due on due Goal HIV screen due Goal HPV. Due on due Goal Vitamin B12. Due on due Goal Drug Abuse Scree lashaun Test (DAST-10). Due on due Goal Drug Abuse Scree lashaun Test (DAST). Due on due Goal Pap/HPV testing. Due on due Goal HPV testing. Due on due Goal Tobacco Use Cess ation Counseling. Due on due Goal Obtain Height, W eight, and BMI. Due on due Goal CMP. Due on due Goal TSH. Due on due Goal Generalized Anxi ety Disorder - 7 (GIANFRANCO-7). Due on due Goal Diabetes screening. Due on A due Goal Tobacco Use Scre ening. Due on due Goal Lipid panel. Due on due Goal Unhealthy drug use screening due Goal TSH. Due on due Goal CMP. Due on due Goal Tobacco Use Scre ening. Due on due Goal Drug Abuse Scree lashaun Test (DAST-10). Due on due Goal Tobacco Use Cess ation Counseling. Due on due Goal PAP. Due on due Goal Diabetes screening. Due on A due Goal Vitamin D. Due on due Goal Mammogram. Due on due Goal Depression scree lashaun. Due on due Goal CBC. Due on due Goal HIV screen due Goal Unhealthy drug use screening due Goal HPV testing. Due on due Goal Follow up Plan f or abnormal BMI (Less than 18.5, greater than 25). Due on due Goal Generalized Anxi ety Disorder - 7 (GIANFRANCO-7). Due on due Goal HPV. Due on due Goal Vitamin B12. Due on due Goal Influenza vaccine. Due on due Goal Hepatitis C Scre ening. Due on due Goal Obtain Height, W eight, and BMI. Due on due Goal Lipid panel. Due on due Goal Pap/HPV testing. Due on due Goal Drug Abuse Scree lashaun Test (DAST). Due on due Goal Drug Abuse Scree lashaun Test (DAST). Due on due Goal Drug Abuse Scree lashaun Test (DAST-10). Due on due Goal TSH. Due on due Goal Tobacco Use Scre ening. Due on due Goal Mammogram. Due on due Goal Influenza vaccine. Due on due Goal Generalized Anxi ety Disorder - 7 (GIANFRANCO-7). Due on due Goal HIV screen due Goal Follow up Plan f or abnormal BMI (Less than 18.5, greater than 25). Due on due Goal Vitamin B12. Due on due Goal Pap/HPV testing. Due on due Goal HPV. Due on due Goal Obtain Height, W eight, and BMI. Due on due Goal Vitamin D. Due on due Goal Tobacco Use Cess ation Counseling. Due on due Goal Diabetes screening. Due on A due Goal Depression scree lashaun. Due on due Goal Unhealthy drug use screening due Goal PAP. Due on due Goal CMP. Due on due Goal HPV testing. Due on due Goal CBC. Due on due Goal Hepatitis C Scre ening. Due on due Goal Lipid panel. Due on due Goal PAP. Due on due Goal CBC. Due on due Goal TSH. Due on due Goal Drug Abuse Scree lashaun Test (DAST). Due on due Goal Hepatitis C Scre ening. Due on due Goal Lipid panel. Due on due Goal Influenza vaccine. Due on due Goal Unhealthy drug use screening due Goal Vitamin B12. Due on due Goal CMP. Due on due Goal HPV. Due on due Goal HIV screen due Goal Drug Abuse Scree lashaun Test (DAST-10). Due on due Goal Depression scree lashaun. Due on due Goal Generalized Anxi ety Disorder - 7 (GIANFRANCO-7). Due on due Goal Obtain Height, W eight, and BMI. Due on due Goal Diabetes screening. Due on A due Goal Tobacco Use Cess ation Counseling. Due on due Goal Vitamin D. Due on due Goal Pap/HPV testing. Due on due Goal Tobacco Use Scre ening. Due on due Goal HPV testing. Due on due Goal Follow up Plan f or abnormal BMI (Less than 18.5, greater than 25). Due on due Goal PAP. Due on due Goal CBC. Due on due Goal TSH. Due on due Goal Drug Abuse Scree lashaun Test (DAST). Due on due Goal Hepatitis C Scre ening. Due on due Goal Mammogram. Due on due Goal Lipid panel. Due on due Goal Influenza vaccine. Due on due Goal Unhealthy drug use screening due Goal Vitamin B12. Due on due Goal CMP. Due on due Goal HPV. Due on due Goal HIV screen due Goal Drug Abuse Scree lashaun Test (DAST-10). Due on due Goal Depression scree lashaun. Due on due Goal Generalized Anxi ety Disorder - 7 (GIANFRANCO-7). Due on due Goal Obtain Height, W eight, and BMI. Due on due Goal Diabetes screening. Due on A due Goal Tobacco Use Cess ation Counseling. Due on due Goal Vitamin D. Due on due Goal Pap/HPV testing. Due on due Goal Tobacco Use Scre ening. Due on due Goal HPV testing. Due on due Goal Follow up Plan f or abnormal BMI (Less than 18.5, greater than 25). Due on due Goal HIV screen due Goal Vitamin D. Due on due Goal Drug Abuse Scree lashaun Test (DAST). Due on due Goal Generalized Anxi ety Disorder - 7 (GIAFNRANCO-7). Due on due Goal Lipid panel. Due on due Goal HPV testing. Due on due Goal Follow up Plan f or abnormal BMI (Less than 18.5, greater than 25). Due on due Goal Diabetes screening. Due on A due Goal Obtain Height, W eight, and BMI. Due on due Goal Vitamin B12. Due on due Goal Pap/HPV testing. Due on due Goal Influenza vaccine. Due on due Goal Tobacco Use Cess ation Counseling. Due on due Goal CMP. Due on due Goal TSH. Due on due Goal Depression scree lashaun. Due on due Goal HPV. Due on due Goal Hepatitis C Scre ening. Due on due Goal Drug Abuse Scree lashaun Test (DAST-10). Due on due Goal Unhealthy drug use screening due Goal PAP. Due on due Goal Tobacco Use Scre ening. Due on due Goal CBC. Due on due Goal Lifestyle education regardin g diet completed Goal Tobacco cessation counseling completed Goal Vitamin B12. Due on due Goal Influenza vaccine. Due on due Goal PAP. Due on due Goal Depression scree lashaun. Due on due Goal Diabetes screening. Due on A due Goal Generalized Anxi ety Disorder - 7 (GIANFRANCO-7). Due on due Goal TSH. Due on due Goal Hepatitis C Scre ening. Due on due Goal HPV testing. Due on due Goal Drug Abuse Scree lashaun Test (DAST). Due on due Goal Tobacco Use Cess ation Counseling. Due on due Goal Obtain Height, W eight, and BMI. Due on due Goal HIV screen due Goal Vitamin D. Due on due Goal CMP. Due on due Goal Lipid panel. Due on 023 due Goal CBC. Due on due Goal Pap/HPV testing. Due on due Goal Drug Abuse Scree lashaun Test (DAST-10). Due on due Goal Follow up Plan f or abnormal BMI (Less than 18.5, greater than 25). Due on due Goal HPV. Due on due Goal Tobacco Use Scre ening. Due on due Goal Unhealthy drug u se screening. Due on due Goal Tobacco cessation counseling completed Goal CBC. Due on due Goal HIV screen due Goal Vitamin D. Due on due Goal Unhealthy drug u se screening. Due on due Goal Follow up Plan f or abnormal BMI (Less than 18.5, greater than 25). Due on due Goal PAP. Due on due Goal TSH. Due on due Goal Tobacco Use Cess ation Counseling. Due on due Goal Influenza vaccine. Due on due Goal Depression scree lashaun. Due on due Goal Obtain Height, W eight, and BMI. Due on due Goal CMP. Due on due Goal Hepatitis C Scre ening. Due on due Goal Pap/HPV testing. Due on due Goal Diabetes screening. Due on due Goal Drug Abuse Scree lashaun Test (DAST-10). Due on due Goal Generalized Anxi ety Disorder - 7 (GIANFRANCO-7). Due on due Goal Vitamin B12. Due on due Goal HPV. Due on due Goal HPV testing. Due on due Goal Lipid panel. Due on due Goal Tobacco Use Scre ening. Due on due Goal Drug Abuse Scree lashaun Test (DAST). Due on due Goal Generalized Anxi ety Disorder - 7 (GIANFRANCO-7). Due on due Goal Tobacco Use Cess ation Counseling. Due on due Goal Hepatitis C Scre ening. Due on due Goal HPV testing. Due on due Goal PAP. Due on due Goal Drug Abuse Scree lashaun Test (DAST-10). Due on due Goal HIV screen due Goal Follow up Plan f or abnormal BMI (Less than 18.5, greater than 25). Due on due Goal Obtain Height, W eight, and BMI. Due on due Goal Diabetes screening. Due on due Goal Vitamin B12. Due on due Goal HPV. Due on due Goal Pap/HPV testing. Due on due Goal TSH. Due on due Goal Lipid panel. Due on due Goal Tobacco Use Scre ening. Due on due Goal Vitamin D. Due on due Goal Unhealthy drug u se screening. Due on due Goal Influenza vaccine. Due on due Goal Drug Abuse Scree lashaun Test (DAST). Due on due Goal CMP. Due on due Goal Depression scree lashaun. Due on due Goal CBC. Due on due Goal Drug Abuse Scree lashaun Test (DAST). Due on due Goal Drug Abuse Scree lashaun Test (DAST-10). Due on due Goal Follow up Plan for abnormal BMI (Less than 18.5, greater than 25). Due on due Goal Diabetes screening. Due on due Goal Lipid panel. Due on due Goal Hepatitis C Scre ening. Due on due Goal TSH. Due on due Goal Tobacco Use Cess ation Counseling. Due on due Goal CMP. Due on due Goal Obtain Height, W eight, and BMI. Due on due Goal HPV. Due on due Goal Unhealthy drug u se screening. Due on due Goal CBC. Due on due Goal Depression scree lashaun. Due on due Goal Vitamin D. Due on due Goal PAP. Due on due Goal Generalized Anxi ety Disorder - 7 (GIANFRANCO-7). Due on due Goal Influenza vaccine. Due on No due Goal Tobacco Use Scre ening. Due on due Goal Pap/HPV testing. Due on due Goal Vitamin B12. Due on 023 due Goal HPV testing. Due on 020 due Goal HIV screen due Goal Tobacco cessation counseling completed Goal Drug Abuse Scree lashaun Test (DAST-10). Due on due Goal CMP. Due on due Goal HPV. Due on due Goal Unhealthy drug u se screening. Due on due Goal CBC. Due on due Goal Follow up Plan f or abnormal BMI (Less than 18.5, greater than 25). Due on due Goal Lipid panel. Due on 023 due Goal Pap/HPV testing. Due on due Goal Drug Abuse Scree lashaun Test (DAST). Due on due Goal Hepatitis C Scre ening. Due on due Goal Vitamin D. Due on due Goal Influenza vaccine. Due on due Goal Generalized Anxi ety Disorder - 7 (GIANFRANCO-7). Due on due Goal Diabetes screening. Due on due Goal HIV screen due Goal Depression scree lashaun. Due on due Goal Tobacco Use Cess ation Counseling. Due on due Goal HPV testing. Due on due Goal Obtain Height, W eight, and BMI. Due on due Goal Vitamin B12. Due on due Goal PAP. Due on due Goal Tobacco Use Scre ening. Due on due Goal TSH. Due on due Goal HIV screen due Goal HPV testing. Due on due Goal Influenza vaccine. Due on due Goal Tobacco Use Scre ening. Due on due Goal Generalized Anxi ety Disorder - 7 (GIANFRANCO-7). Due on due Goal Vitamin B12. Due on due Goal HPV. Due on due Goal Pap/HPV testing. Due on due Goal CMP. Due on due Goal PAP. Due on due Goal TSH. Due on due Goal Depression scree lashaun. Due on due Goal Vitamin D. Due on due Goal CBC. Due on due Goal Tobacco Use Cess ation Counseling. Due on due Goal Diabetes screening. Due on due Goal Follow up Plan f or abnormal BMI (Less than 18.5, greater than 25). Due on due Goal Hepatitis C Scre ening. Due on due Goal Unhealthy drug u se screening. Due on due Goal Lipid panel. Due on due Goal Drug Abuse Scree lashaun Test (DAST-10). Due on due Goal Obtain Height, W eight, and BMI. Due on due Goal Drug Abuse Scree lashaun Test (DAST). Due on due Goal HIV screen due Goal Drug Abuse Scree lashaun Test (DAST-10). Due on due Goal Vitamin D. Due on due Goal Diabetes screening. Due on due Goal Vitamin B12. Due on 023 due Goal Hepatitis C Scre ening. Due on due Goal Generalized Anxi ety Disorder - 7 (GIANFRANCO-7). Due on due Goal Tobacco Use Cess ation Counseling. Due on due Goal CMP. Due on due Goal Obtain Height, W eight, and BMI. Due on due Goal Tobacco Use Scre ening. Due on due Goal Unhealthy drug u se screening. Due on due Goal PAP. Due on due Goal Influenza vaccine. Due on No due Goal Follow up Plan f or abnormal BMI (Less than 18.5, greater than 25). Due on due Goal HPV. Due on due Goal TSH. Due on due Goal HPV testing. Due on due Goal Pap/HPV testing. Due on due Goal Depression scree lashaun. Due on due Goal CBC. Due on due Goal Lipid panel. Due on due Goal Drug Abuse Scree lashaun Test (DAST). Due on due Goal Lipid panel. Due on due Goal HPV. Due on due Goal Unhealthy drug u se screening. Due on due Goal CMP. Due on due Goal Hepatitis C Scre ening. Due on due Goal Generalized Anxi ety Disorder - 7 (GIANFRANCO-7). Due on due Goal Vitamin B12. Due on due Goal Drug Abuse Scree lashaun Test (DAST). Due on due Goal Drug Abuse Scree lashaun Test (DAST-10). Due on due Goal Obtain Height, W eight, and BMI. Due on due Goal Diabetes screening. Due on due Goal CBC. Due on due Goal HPV testing. Due on due Goal Pap/HPV testing. Due on due Goal Tobacco Use Scre ening. Due on due Goal HIV screen due Goal Depression scree lashaun. Due on due Goal Influenza vaccine. Due on No due Goal Vitamin D. Due on due Goal PAP. Due on due Goal Tobacco Use Cess ation Counseling. Due on due Goal TSH. Due on due Goal Follow up Plan f or abnormal BMI (Less than 18.5, greater than 25). Due on due Goal Vitamin D. Due on due Goal Influenza vaccine. Due on No due Goal Follow up Plan f or abnormal BMI (Less than 18.5, greater than 25). Due on due Goal CBC. Due on due Goal HIV screen due Goal Lipid panel. Due on due Goal Generalized Anxi ety Disorder - 7 (GIANFRANCO-7). Due on due Goal TSH. Due on due Goal CMP. Due on due Goal Unhealthy drug u se screening. Due on due Goal Drug Abuse Scree lashaun Test (DAST). Due on due Goal Obtain Height, W eight, and BMI. Due on due Goal Drug Abuse Scree lashaun Test (DAST-10). Due on due Goal Tobacco Use Scre ening. Due on due Goal Hepatitis C Scre ening. Due on due Goal Vitamin B12. Due on due Goal PAP. Due on due Goal Tobacco Use Cess ation Counseling. Due on due Goal HPV testing. Due on due Goal Pap/HPV testing. Due on due Goal Depression scree lashaun. Due on due Goal HPV. Due on due Goal Diabetes screening. Due on A due Goal CMP. Due on due Goal Depression scree lashaun. Due on due Goal Follow up Plan f or abnormal BMI (Less than 18.5, greater than 25). Due on due Goal PAP. Due on due Goal Drug Abuse Scree lashaun Test (DAST-10). Due on due Goal HPV testing. Due on due Goal Obtain Height, W eight, and BMI. Due on due Goal Vitamin B12. Due on due Goal Diabetes screening. Due on A due Goal HIV screen due Goal Influenza vaccine. Due on due Goal Unhealthy drug u se screening. Due on due Goal Tobacco Use Scre ening. Due on due Goal Tobacco Use Cess ation Counseling. Due on due Goal Vitamin D. Due on due Goal Lipid panel. Due on 023 due Goal TSH. Due on due Goal Generalized Anxi ety Disorder - 7 (GIANFRANCO-7). Due on due Goal CBC. Due on due Goal Pap/HPV testing. Due on due Goal Hepatitis C Scre ening. Due on due Goal HPV. Due on due Goal Drug Abuse Scree lashaun Test (DAST). Due on due Goal Tobacco cessation counseling completed Goal HIV screen due Goal Pap/HPV testing. Due on due Goal Tobacco Use Cess ation Counseling. Due on due Goal PAP. Due on due Goal Hepatitis C Scre ening. Due on due Goal Drug Abuse Scree lashaun Test (DAST). Due on due Goal TSH. Due on due Goal Follow up Plan f or abnormal BMI (Less than 18.5, greater than 25). Due on due Goal CMP. Due on due Goal Vitamin B12. Due on due Goal HPV. Due on due Goal Depression scree lashaun. Due on due Goal Tobacco Use Scre ening. Due on due Goal Obtain Height, W eight, and BMI. Due on due Goal Unhealthy drug u se screening. Due on due Goal Vitamin D. Due on due Goal Generalized Anxi ety Disorder - 7 (GIANFRANCO-7). Due on due Goal Drug Abuse Scree lashaun Test (DAST-10). Due on due Goal HPV testing. Due on 020 due Goal CBC. Due on due Goal Diabetes screening. Due on A due Goal Influenza vaccine. Due on No due Goal Lipid panel. Due on 023 due Goal Hepatitis C Scre ening. Due on due Goal Pap/HPV testing. Due on due Goal Vitamin B12. Due on 023 due Goal TSH. Due on due Goal Obtain Height, W eight, and BMI. Due on due Goal Follow up Plan f or abnormal BMI (Less than 18.5, greater than 25). Due on due Goal CMP. Due on due Goal Influenza vaccine. Due on No due Goal Diabetes screening. Due on due Goal Drug Abuse Scree lashaun Test (DAST-10). Due on due Goal PAP. Due on due Goal Tobacco Use Scre ening. Due on due Goal Drug Abuse Scree lashaun Test (DAST). Due on due Goal Depression scree lashaun. Due on due Goal Lipid panel. Due on due Goal CBC. Due on due Goal HPV testing. Due on due Goal Generalized Anxi ety Disorder - 7 (GIANFRANCO-7). Due on due Goal Vitamin D. Due on due Goal Tobacco Use Cess ation Counseling. Due on due Goal HIV screen due Goal Pap/HPV testing. Due on due Goal Influenza vaccine. Due on due Goal PAP. Due on due Goal TSH. Due on due Goal Diabetes screening. Due on due Goal CMP. Due on due Goal Follow up Plan f or abnormal BMI (Less than 18.5, greater than 25). Due on due Goal CBC. Due on due Goal Lipid panel. Due on due Goal HPV testing. Due on due Goal Depression scree lashaun. Due on due Goal Hepatitis C Scre ening. Due on due Goal Vitamin B12. Due on due Goal Tobacco Use Cess ation Counseling. Due on due Goal Obtain Height, W eight, and BMI. Due on due Goal HIV screen due Goal Tobacco Use Scre ening. Due on due Goal Generalized Anxi ety Disorder - 7 (GIANFRANCO-7). Due on due Goal Vitamin D. Due on due Goal Drug Abuse Scree lashaun Test (DAST). Due on due Goal Drug Abuse Scree lashaun Test (DAST-10). Due on due Goal HIV screen. Due on due Goal Influenza vaccine. Due on due Goal Hepatitis C Scre ening. Due on due Goal Generalized Anxi ety Disorder - 7 (GIANFRANCO-7). Due on due Goal Diabetes screening. Due on due Goal Drug Abuse Scree lashaun Test (DAST). Due on due Goal Pap/HPV testing. Due on due Goal Drug Abuse Scree lashaun Test (DAST-10). Due on due Goal Tobacco Use Scre ening. Due on due Goal Lipid panel. Due on due Goal Depression scree lashaun. Due on due Goal HPV testing. Due on due Goal PAP. Due on due Goal Tobacco Use Cess ation Counseling. Due on due Goal Vitamin B12. Due on due Goal Follow up Plan f or abnormal BMI (Less than 18.5, greater than 25). Due on due Goal TSH. Due on due Goal Vitamin D. Due on due Goal CBC. Due on due Goal Obtain Height, W eight, and BMI. Due on due Goal CMP. Due on due Goal HIV screen. Due on due Goal Drug Abuse Scree lashaun Test (DAST). Due on due Goal Depression scree lashaun. Due on due Goal TSH. Due on due Goal Diabetes screening. Due on due Goal Follow up Plan f or abnormal BMI (Less than 18.5, greater than 25). Due on due Goal Lipid panel. Due on due Goal PAP. Due on due Goal Generalized Anxi ety Disorder - 7 (GIANFRANCO-7). Due on due Goal Influenza vaccine. Due on due Goal Obtain Height, W eight, and BMI. Due on due Goal Hepatitis C Scre ening. Due on due Goal Vitamin B12. Due on due Goal Tobacco Use Cess ation Counseling. Due on due Goal CBC. Due on due Goal Pap/HPV testing. Due on due Goal Drug Abuse Scree lashaun Test (DAST-10). Due on due Goal Vitamin D. Due on due Goal HPV testing. Due on due Goal Tobacco Use Scre ening. Due on due Goal CMP. Due on due Goal PAP. Due on due Goal Influenza vaccine. Due on due Goal Pap/HPV testing. Due on due Goal Diabetes screening. Due on due Goal Depression scree lashaun. Due on due Goal Obtain Height, W eight, and BMI. Due on due Goal CMP. Due on due Goal HPV testing. Due on due Goal Generalized Anxi ety Disorder - 7 (GIANFRANCO-7). Due on due Goal Drug Abuse Scree lashaun Test (DAST). Due on due Goal Tobacco Use Cess ation Counseling. Due on due Goal TSH. Due on due Goal Lipid panel. Due on due Goal Drug Abuse Scree lashaun Test (DAST-10). Due on due Goal Tobacco Use Scre ening. Due on due Goal Vitamin D. Due on due Goal Follow up Plan f or abnormal BMI (Less than 18.5, greater than 25). Due on due Goal HIV screen. Due on due Goal Vitamin B12. Due on due Goal CBC. Due on due Goal Hepatitis C Scre ening. Due on due Goal Depression scree lashaun. Due on due Goal Obtain Height, W eight, and BMI. Due on due Goal PAP. Due on due Goal TSH. Due on due Goal HPV testing. Due on due Goal Vitamin B12. Due on due Goal Follow up Plan f or abnormal BMI (Less than 18.5, greater than 25). Due on due Goal Influenza vaccine. Due on due Goal CMP. Due on due Goal Drug Abuse Scree lashaun Test (DAST-10). Due on due Goal Diabetes screening. Due on due Goal Lipid panel. Due on due Goal Pap/HPV testing. Due on due Goal Generalized Anxi ety Disorder - 7 (GIANFRANCO-7). Due on due Goal Vitamin D. Due on due Goal Hepatitis C Scre ening. Due on due Goal Tobacco Use Scre ening. Due on due Goal Tobacco Use Cess ation Counseling. Due on due Goal Drug Abuse Scree lashaun Test (DAST). Due on due Goal CBC. Due on due Goal HIV screen. Due on due Goal Diabetes screening. Due on O due Goal Tobacco Use Cess ation Counseling. Due on due Goal Vitamin B12. Due on due Goal Influenza vaccine. Due on No due Goal Pap/HPV testing. Due on due Goal Tobacco Use Scre ening. Due on due Goal HPV testing. Due on due Goal PAP. Due on due Goal Hepatitis C Scre ening. Due on due Goal HIV screen. Due on due Goal Generalized Anxi ety Disorder - 7 (GIANFRANCO-7). Due on due Goal Lipid panel. Due on due Goal Drug Abuse Scree lashaun Test (DAST). Due on due Goal Follow up Plan f or abnormal BMI (Less than 18.5, greater than 25). Due on due Goal CMP. Due on due Goal TSH. Due on due Goal CBC. Due on due Goal Drug Abuse Scree lashaun Test (DAST-10). Due on due Goal Obtain Height, W eight, and BMI. Due on due Goal Vitamin D. Due on due Goal Depression scree lashaun. Due on due Goal Vitamin D. Due on due Goal Influenza vaccine. Due on No due Goal Drug Abuse Scree lashaun Test (DAST-10). Due on due Goal Tobacco Use Cess ation Counseling. Due on due Goal PAP. Due on due Goal Hepatitis C Scre ening. Due on due Goal Pap/HPV testing. Due on due Goal Depression scree lashaun. Due on due Goal Generalized Anxi ety Disorder - 7 (GIANFRANCO-7). Due on due Goal Follow up Plan f or abnormal BMI (Less than 18.5, greater than 25). Due on due Goal Obtain Height, W eight, and BMI. Due on due Goal CMP. Due on due Goal Tobacco Use Scre ening. Due on due Goal HIV screen. Due on due Goal Vitamin B12. Due on due Goal Diabetes screening. Due on due Goal Lipid panel. Due on due Goal TSH. Due on due Goal CBC. Due on due Goal Drug Abuse Scree lashaun Test (DAST). Due on due Goal HPV testing. Due on due Goal PAP. Due on due Goal Pap/HPV testing. Due on due Goal Generalized Anxi ety Disorder - 7 (GIANFRANCO-7). Due on due Goal Drug Abuse Scree lashaun Test (DAST). Due on due Goal CBC. Due on due Goal CMP. Due on due Goal Diabetes screening. Due on due Goal Drug Abuse Scree lashaun Test (DAST-10). Due on due Goal Follow up Plan f or abnormal BMI (Less than 18.5, greater than 25). Due on due Goal Hepatitis C Scre ening. Due on due Goal HPV testing. Due on due Goal Obtain Height, W eight, and BMI. Due on due Goal Tobacco Use Cess ation Counseling. Due on due Goal Tobacco Use Scre ening. Due on due Goal TSH. Due on due Goal Vitamin B12. Due on due Goal Vitamin D. Due on due Goal Influenza vaccine. Due on due Goal Lipid panel. Due on due Goal HIV screen. Due on due Goal Depression scree lashaun. Due on due Goal Drug Abuse Scree lashaun Test (DAST). Due on due Goal Depression scree lashaun. Due on due Goal Influenza vaccine. Due on due Goal Generalized Anxi ety Disorder - 7 (GIANFRANCO-7). Due on due Goal Pap/HPV testing. Due on due Goal HIV screen. Due on due Goal Tobacco cessation counseling completed Goal Dietary education for weight gain completed Goal Influenza vaccine. Due on due Goal Generalized Anxi ety Disorder - 7 (GIANFRANCO-7). Due on due Goal Drug Abuse Scree lashaun Test (DAST). Due on due Goal Depression scree lashaun. Due on due Goal Pap/HPV testing. Due on due Goal HIV screen. Due on due Referral Referred To: [facility] Ordered: Referrals: Urology. [facility]. Location: [place]. Evaluate and treat Appointment date/timeframe: 02/06/2024 ordered Referral Ordered: US EXAM ABDO BACK WALL, COMP Bilateral kidney/bladder Appointment date/timeframe: 12/28/2023 ordered Referral Referred To: [facility] Ordered: Referrals: Radiotherapy. [facility]. Location: [place]. Evaluate and treat. Diagnostic testing Appointment date/timeframe: 06/30/2023 ordered Referral Ordered: DX MAMMO INCL CAD UNI L Breast Appointment date/timeframe: 06/30/2023 ordered Referral Referred To: [facility] Ordered: Referrals: Radiotherapy. [facility]. Location: [place]. Diagnostic testing Appointment date/timeframe: 06/30/2023 ordered Referral Referred To: [facility] Ordered: Referrals: Oncology. [facility]. Location: [facility]. Evaluate and treat Appointment date/timeframe: 02/16/2023 ordered Referral Referred To: [facility] Ordered: Referrals: Orthopedic Surgery. [facility]. Location: [place]. Evaluate and treat Appointment date/timeframe: 01/06/2023 ordered Referral Ordered: X-RAY EXAM OF SHOULDER Right shoulder Appointment date/timeframe: 1 Day ordered Referral Ordered: MRI UPPER EXTREMITY W/O DYE Right shoulder Appointment date/timeframe: 12/24/2022 ordered Referral Ref[facility] To: [facility] [facility] Ordered: Referrals: Radiotherapy. [facility]. Location: [place]. Diagnostic testing Appointment date/timeframe: 08/31/2022 ordered Referral Referred To: Maryellen Rea MSN [address], [place], [phone] Ordered: Referrals: Psychiatry. Maryellen Rea MSN. Location: [facility] Appointment date/timeframe: 1 Day ordered Referral Referred To: [facility] Ordered: Referrals: Radiotherapy. [facility]. Location: [place], [place]. Diagnostic testing Appointment date/timeframe: 08/04/2022 ordered Future Order: Lab Order Urinalys is Auto W/O Micro ([id number]), Ordered on: Ordered Future Order: Lab Order CBC (INC LUDES DIFF/PLT) ([id number]), Scheduled for: Ordered Future Order: Lab Order COMPREHE NSIVE METABOLIC PANEL ([id number]), Scheduled for: Ordered Future Order: Lab Order LIPID PA LAITH ([id number]), Scheduled for: Ordered Future Order: Lab Order TSH W/RE FLEX TO FREE T4 ([id number]), Scheduled for: Ordered Future Order: Lab Order VITAMIN B12 ([id number]), Scheduled for: Ordered Future Order: Lab Order VITAMIN D,25-OH,TOTAL,IA ([id number]), Scheduled for: Ordered Nutrition Recommendation Nutrition / feed ing management completed History Of Present Illness Encounter Date Complaint History Of Prese nt Illness B12 INJECTION MARIANNE IS HERE T DANIEL TO RECEIVE HER MONTHLY B12 INJECTION. ADMINISTERED INTO LEFT DELTOID. PT TOLERATED WELL, BAND AID APPLIED. PT IS SCHEDULED TO RTC IN 1 MONTH TO RECEIVE HER NEXT MONTHLY B12 INJECTION. dysuria Onset: gradual. Date of initial symptoms: 11/29/2023. Severity level is 7. Duration: 2 Days. There is radiation to back. Location is lower back, suprapubic. The client describes it as bloody, cramping, sharp. It occurs constantly. The problem is worse. Denies aggravating factors. Additional information: no history of interstitial cystitis, history of irritable bowel, no history of pyelonephritis, history of stones, no history of UTIs, sexually active, Previous renal stone in 12 months' time.. CYST The symptoms beg an 1 day ago. The symptoms are reported as being mild. The symptoms occur constantly. The client states the symptoms are acute. Pt is here this morning due to a cyst vs. abscess on the left side of her face, beside her nose, that popped up yesterday. She report pressure and swelling in her face all the way up to her left eye. Patient reports placing eggshell skin on area over night, which caused an oily substance to leak and drain. Area is red and painful, small scab over wound. She denies dental pain,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
--- NOTE | 2025-04-11 15:30 | US_ITS ---
PROCEDURE INFORMATION: Exam: US Right Breast, Complete Exam date and time: 04/11/2025 3:18 PM Age: 44 years old Clinical indication: Short-term radiographic follow-up of a right breast mass TECHNIQUE: Imaging protocol: Complete ultrasound of all four quadrants of the right breast and the retroareolar regions, including ultrasound of the axilla when performed. COMPARISON: US BREAST RT COMPLETE 09/25/2024 2:32 PM FINDINGS: ULTRASOUND: Breast ultrasound findings: Sonographic images of the right breast including the retroareolar region, all 4 quadrants and the axilla demonstrates a stable ovoid hypoechoic mass in the 11 o'clock axis 2 cm from the nipple measuring 0.5 x 0.5 x 0.3 cm. Sonographic images of the right 3 o'clock retroareolar region demonstrates a gently lobulated uniformly hypoechoic solid-appearing mass measuring 0.9 x 1.1 x 0.4 cm, likely reflecting benign fibrocystic change. No architectural distortion or acoustical shadowing. No skin thickening or axillary adenopathy. IMPRESSION: 1. Stable subcentimeter mass in the right 11 o'clock axis compared to prior sonogram dated 09/25/2024. 2. New probably benign right 3 o'clock retro areolar mass 3. A six-month follow-up targeted right breast ultrasound is recommended to ensure stability over time. ASSESSMENT: BI-RADS Category 3: Probably benign.
== END 2025-04-11 23:59 | disposition home or self-care (01) ==
LOC: RAD 15:28
PROVIDERS: PCP Nurse Practitioner Family; Visit Provider Surgery
DX: N63.11 Unspecified lump in the right breast, upper outer quadrant (principal); N63.41 Unspecified lump in right breast, subareolar
CPT/HCPCS: 76641

== ENCOUNTER 2025-04-16 16:46 | Outpatient (CLI) | payer OTHER, SELFPAY ==
--- OUTSIDE RECORDS SUMMARY | 2024-04-17 11:00 | XMS_ITS | Continuity of Care Document ---
Author Organization [facility] Address [address] [place] [address] Phone Care Team Providers Care Email Marketing Intern Name Role Phone Adrian MSN, WHIP OPERATOR, Maura Unavailable Unavai lable Allergies, Adverse Reactions, Alerts Substance Reaction Status Criticality No Known Allergies Active No Inform ation Medications Medication Instructions Dosage Effective Dates (start - stop) Status Comments nystatin 100,000 unit/mL oral suspension take 5 milliliter by oral route 4 times every day [id number] UNITS - Active MELOXICAM 15 MG TABLET [...] Location Reason(s) For Visit Diagnoses Date Provider [facility], [address] [place] [address], [facility], tel:[phone] [facility] [place] B12 INJECTION (chief complaint) Vitamin B12 deficiency anemia, unspecified Apr- 4 Campbell Maura. [address] [place], [place], [id number] , [place]. tel: [phone] [place] [address], [address] [place] [address], [facility], tel:[phone] [facility] [place] No Information 4 Campbell Maura. [address] [place], [place], [id number] , [place]. tel: [phone] [facility], [address] [place] [address], [facility], tel:[phone] [facility] [place] No Information 4 Campbell Maura. [address] [place], [place], [id number] , [place]. tel: [phone] [facility], [address] [place] [address], [facility], [place] tel:[phone] [facility] [place] Renal stoneAbdominal pain 4 Campbell Maura. [address] [place], [place], [id number] , [place]. tel: [phone] [facility], [address] [place] [address], [facility], tel:[phone] [facility] [place] Abdominal pain December-0 4 Campbell Maura. [address] [place], [place], [id number] , [place]. tel:[phone] [facility], [address] [place] [address], [facility], [place] tel:[phone] [facility] [place] dysuria (chief complaint) DysuriaAbdominal painVitamin B12 deficiency anemia, unspecifiedBody mass index [BMI] 19.9 or less, adultExtreme poverty 4 Campbell Maura. [address] [place], [place], [id number] , [place]. tel: [phone] [facility], [address] [place] [address], [facility], [place] tel:[phone] [facility] [place] CYST (chief complaint)re fills (chief complaint) Cutaneous abscess of faceAnxiety disorder, unspecifiedHyperlipidem iaVitamin B12 deficiency anemia, unspecified Oct-0 4 Campbell Maura. [address] [place], [place], [id number] , [place]. tel: [phone] [facility], [address] [place] [address], [address], [place] tel:[phone] [facility] [place] B12 INJECTION (chief complaint) Vitamin B12 deficiency anemia, unspecified 4 Campbell Maura. [address] [place], [place], [id number] , [place]. tel: [phone] [facility], [address] [place] [address], [address], [place] tel:[phone] [facility] [place] Monthly B12 inj (chief complaint) Vitamin B12 deficiency anemia, unspecified 4 Campbell Maura. [address] [place], [place], [id number] , [place]. tel:[phone] [facility], [address] [place] [address], [facility], tel:[phone] [facility] [place] B12 INJECTION (chief complaint) Vitamin B12 deficiency anemia, unspecified 2 3 Campbell Maura. [address] [place], [address] [place] [address] , [place]. tel:[phone] [facility], [address] [place] [address], [facility], [place] tel:[phone] [facility] [place] B12 INJECTION (chief complaint) Vitamin B12 deficiency anemia, unspecified 3 Campbell Maura. [address] [place], [address] [place] [address] , [place]. tel:[phone] [facility], [address] [place] [address], [facility], tel:[phone] [facility] [place] Unspecified lump in the left breast, lower inner quadrant May- 0-202 3 Campbell Maura. [address] [place], [address] [place] [address] , [place]. tel:[phone] [place] [address], [address] [place] [address], [facility], tel:[phone] [facility] [place] lump on breast (chief complaint) Unspecified lump in the left breast, lower inner quadrantVitamin B12 deficiency anemia, unspecifiedEncounter for screening for depressionEncounter for screening examination for other mental health and behavioral disordersBody mass index [BMI] 19.9 or less, adult May- 6 3 Campbell Maura. [address] [place], [address] [place] [address] , [place]. tel:[phone] [facility], [address] [place] [address], [facility], [place] tel:[phone] [facility] [place] congestion (chief complaint) Vitamin B12 deficiency anemia, unspecifiedAcute upper respiratory infection, unspecifiedNicotine dependence, cigarettes, uncomplicated 3 Campbell Maura. [address] [place], [place], [id number] , [place]. tel: [phone] [facility], [address] [place] [address], [facility], [place] tel:[phone] [facility] [place] INJECTION (chief complaint) Vitamin B12 deficiency anemia, unspecified 3 Campbell Maura. [address] [place], [place], [address] , [place]. tel: [phone] [facility], [address] [place] [address], [facility], [place] tel:[phone] [facility] [place] INJECTION (chief complaint) Vitamin B12 deficiency anemia, unspecified 3 Campbell Maura. [address] [place], [place], [address] , [place]. tel: [phone] [facility], [address] [place] [address], [facility], [place] tel:[phone] [facility] [place] SWOLLEN LYMPH NODE (chief complaint) Body mass index [BMI] 19.9 or less, adultAcute lymphadenitis of axilla 3 Campbell Maura. [address] [place], [place], [id number] , [place]. tel: [phone] [facility], [address] [place] [address], [facility], [place] tel:[phone] [facility] [place] B12 INJECTION (chief complaint) Vitamin B12 deficiency anemia, unspecified 3 Campbell Maura. [address] [place], [place], [address] , [place]. tel: [phone] [facility], [address] [place] [address], [facility], [place] tel:[phone] [facility] [place] B12 INJECTION (chief complaint) Vitamin B12 deficiency anemia, unspecifiedPain in right shoulder December- 3 Campbell Maura. [address] [place], [place], [id number] , . tel: [phone] [facility], [address] [place] [address], [facility], tel:[phone] [facility] [place] shoulder pain and b12 #4 (chief complaint) Pain in right shoulderVitamin B12 deficiency anemia, unspecifiedBody mass index [BMI] 19.9 or less, adult December- 3 Campbell Maura. [address] [place], [place], [id number] , . tel: [phone] [facility], [address] [place] [address], [facility], tel:[phone] [facility] [place] Injection only (chief complaint) Vitamin B12 deficiency anemia, unspecified December- 3 Campbell Maura. [address] [place], [place], [address] , [place]. tel: [phone] [facility], [address] [place] [address], [facility], tel:[phone] [facility] [place] B12 INJECTION (chief complaint) Vitamin B12 deficiency anemia, unspecified Apr- 3 Campbell Maura. [address] [place], [place], [address] , [place]. tel: [phone] [facility], [address] [place] [address], [facility], [place] tel:[phone] [facility] [place] follow up labs (chief complaint) Vitamin B12 deficiency anemia, unspecifiedHyperlipidem iaNicotine dependence, cigarettes, uncomplicatedGERD disease w/ esophagitis, w/o bleeding Nov- 3 Campbell Maura. [address] [place], [place], [address] , [place]. tel: [phone] [facility], [address] [place] [address], [facility], [place] tel:[phone] [facility] [place] 6 month lab collection (chief complaint) Encounter for screening for diseases of the blood and blood-forming organs and certain disorders involving the immune mechanismHyperlipidemia , unspecified 3 Campbell Maura. [address] [place], [place], [address] , [place]. tel: [phone] [facility], [address] [place] [address], [facility], [place] tel:[phone] [facility] [place] swollen lymph node (chief complaint) Symptom involving the musculoskeletal systemLocalized enlarged lymph nodesPain in lt shoulderEncounter for screening, unspecified 3 Campbell Maura. [address] [place], [place], [address] , [place]. tel: [phone] [facility], [address] [place] [address], [facility], [place] tel:[phone] [facility] [place] Major Depressive Disorder, Single episode, Unspecified 3 Campbell Maura. [address] [place], [place], [address] , [place]. tel: [phone] [facility], [address] [place] [address], [facility], [place] tel:[phone] [facility] [place] f/u Echo (chief complaint) Anxiety disorder, unspecifiedMedical surveillance following completed txEncounter for screening for depressionEncounter for screening examination for other mental health and behavioral disorders 2 Campbell Maura. [address] [place], [place], [address] , [place]. tel: [phone] [facility], [address] [place] [address], [facility], tel:[phone] [facility] ER follow up (chief complaint) PleurisyAbnormal EKGEncounter for mental health service for victim of partner psychological abuse 2 Campbell Maura. [address] [place], [place], [address] , [place]. tel: [phone] [facility], [address] [place] [address], [facility], tel:[phone] [facility] Chest Pain (chief complaint) Chest painAbnormal EKG 2 Campbell Maura. [address] [place], [place], [id number] , [place]. tel: [phone] [facility], [address] [place] [address], [facility], tel:[phone] [facility] Follow up on medication (chief complaint) Major Depressive Disorder, Single episode, UnspecifiedCellulitis of unspecified fingerGeneralized hyperhidrosisHyperlipid emia, unspecified 2 Campbell Maura. [address] [place], [place], [id number] , [place]. tel: [phone] [facility], [address] [place] [address], [facility], [place] tel:[phone] [facility] [place] FOLLOW UP ON MEDICATION (chief complaint) Major Depressive Disorder, Single episode, UnspecifiedDysuria 2 Campbell Maura. [address] [place], [place], [address] , [place]. tel: [phone] [facility], [address] [place] [address], [facility], [place] tel:[phone] [facility] Follow up on labs (chief complaint) Anxiety disorder, unspecified 2 Campbell Maura. [address] [place], [place], [address] , . tel:[phone], [facility], tel:[phone] [facility] [place] FASTING LABS (chief complaint) Encounter for screening for diseases of the blood and blood-forming organs and certain disorders involving the immune mechanismVitamin B12 deficiency anemia, unspecified 2 Campbell Maura. [address] [place], [place], [address] , [place]. tel:[phone], [facility], tel:[phone] [facility] [place] follow up on medications (chief complaint)fa tigue (chief complaint)An xiety (chief complaint) Body mass index [BMI] 19.9 or less, adultAnxiety disorder, unspecifiedFatigue 2 Campbell Maura. [address] [place], [place], [address] , . tel:[phone], [facility], tel:[phone] [facility] [place] Cellulitis of unspecified [...] UnspecifiedAnxiety disorder, unspecified 2 Campbell Maura. [address] [place], [place], [address] , [place]. tel:[phone] [facility], [address] [place] [address], [address], [place] tel:[phone] [facility] [place] No Information 2 Campbell Maura. [address] [place], [place], [address] , [place]. tel: [facility], [address] [place] [address], [facility], [place] tel:[phone] [facility] No Information 2 Campbell Maura. [address] [place], [place], [address] , [place]. tel: [facility], [address] [place] [address], [facility], [place] tel:[phone] [facility] [place] No Information 2 Campbell Maura. [address] [place], [place], [address] , [place]. tel: [facility], [address] [place] [address], [facility], [place] tel:[phone] [facility] [place] No Information 1 Campbell Maura. [address] [place], [place], [address] , [place]. tel:[phone] [facility], [address] [place] [address], [address], [place] tel:[phone] [facility] [place] No Information 1 Campbell Maura. [address] [place], [place], [address] , [place]. tel:[phone] [facility], [address] [place] [address], [facility], [place] tel:[phone] [facility] [place] No Information 1 Adrian Lorenzo. [address] [place], [place], [id number] , . tel: [phone] [facility], [address] [place], [address], tel:[phone] [facility] [place] No Information 1 Adrian Lorenzo. [address] [place], [place], [address] , [place]. tel: [phone] Family History Family Member Type Diagnosis Age [...] Registry Payers Payer name Insurance type Covered democrat ID Authoriza tion(s) Hc- Medicaid [facility] [id number] Hch- Medicaid [employer] W[employer] Payer [id number] Hch- Medicaid [employer] [facility] [id number] Hch- Medicaid [employer] Wrap Payer [id number] Hch- Medicaid [employer] [facility] [id number] Hch- Medicaid [employer] Wrap Payer [id number] Social History Type Description Quantity Date Captured [...] Diabetes screening. Due on A due Goal HPV testing. Due on due Goal HIV screen due Goal Mammogram. Due on due Goal CMP. Due on due Goal Vitamin D. Due on due Goal Lifestyle education regardin [...] vaccine. Due on due Goal Depression scree lashanu. Due on due Goal Obtain Height, W [...] due Goal CBC. Due on due Goal Generalized Anxi ety Disorder - 7 (GIANFRANCO-7). Due on due Goal Influenza vaccine. Due on due Goal Tobacco Use Scre ening. Due on due Goal Pap/HPV testing. Due on due Goal Vitamin B12. Due on 023 due Goal HPV testing. Due on 020 due Goal HIV screen due Goal Drug [...] Goal PAP. Due on due Goal Tobacco cessation counseling [...] No due Goal Diabetes screening. Due on J due Goal Drug Abuse Scree lashaun Test [...] screen. Due on due Referral Referred To: [facility] Ordered: Referrals: Urology. [facility]. Location: [place]. Evaluate and treat Appointment date/timeframe: 02/06/2024 ordered Referral Ordered: US EXAM ABDO BACK WALL, COMP Bilateral kidney/bladder Appointment date/timeframe: 12/28/2023 ordered Referral Referred To: [facility] Ordered: Referrals: Radiotherapy. [facility]. Location: [place]. Evaluate and treat. Diagnostic testing Appointment date/timeframe: 06/30/2023 ordered Referral Ordered: DX MAMMO INCL CAD UNI L Breast Appointment date/timeframe: 06/30/2023 ordered Referral Referred To: [facility] Ordered: Referrals: Radiotherapy. [facility]. Location: [place]. Diagnostic testing Appointment date/timeframe: 06/30/2023 ordered Referral [facility]: [facility] Ordered: Referrals: Oncology. [facility]. Location: [facility]. Evaluate and treat Appointment date/timeframe: 02/16/2023 ordered Referral Referred To: [facility] Ordered: Referrals: Orthopedic Surgery. [facility]. Location: [place]. Evaluate and treat Appointment date/timeframe: 01/06/2023 ordered Referral Ordered: X-RAY EXAM OF SHOULDER Right shoulder Appointment date/timeframe: 1 Day ordered Referral Ordered: MRI UPPER EXTREMITY W/O DYE Right shoulder Appointment date/timeframe: 12/24/2022 ordered Referral Referred To: [facility] Ordered: Referrals: Radiotherapy. [facility]. Location: [place]. Diagnostic testing Appointment date/timeframe: 08/31/2022 ordered Referral Referred To: Maryellen Rea MSN [address], [place], [phone] Ordered: Referrals: Psychiatry. Maryellen Rea MSN. Location: [facility] Appointment date/timeframe: 1 Day ordered Referral Referred To: [facility] Ordered: Referrals: Radiotherapy. [facility]. Location: [place], [place]. Diagnostic testing Appointment date/timeframe: 08/04/2022 ordered Future Order: Lab Order Urinalys is Auto W/O Micro ([id number]), Ordered on: Ordered Future Order: Lab Order CBC (INC LUDES DIFF/PLT) ([id number]), Scheduled for: Ordered Future Order: Lab Order COMPREHE NSIVE METABOLIC PANEL ([id number]), Scheduled for: Ordered Future Order: Lab Order LIPID PA LAITH ([id number]), Scheduled for: Ordered Future Order: Lab Order TSH W/RE FLEX TO FREE T4 ([id number]), Scheduled for: Ordered Future Order: Lab Order VITAMIN B12 ([id number]), Scheduled for: Ordered Future Order: Lab Order VITAMIN D,25-OH,TOTAL,IA ([id number]), Scheduled for: Ordered Nutrition Recommendation Nutrition / [...] youngest son Continues to work at the [employer] facilityShe recently started counseling w/ Mary [facility] is in need of all refills todaymedication [...] there for 2 years.She was evaluated at [facility] 3 motnhs ago- Kvng is requesting to see Dr. Padilla here at [facility] for evaluation this timeIt is painful to touch and her bra is bothering her. US of left breastDiagnostic [id number] todaydeclines flu shot- not available today congestion [...] under the care of Dr. Chaparro at [facility]. She is scheduled to see him on 02.17.23.She had a cystic (benign) node removed from right breast in May 2022 at [facility].Most recent labs were in November- okShe states she has Lupus, but I have not been able to find this in her medical records.She has had a significant work up through various networks of doctors across the region.She does report 5 lb weight loss, but also reports she has been busy, as it is spring/summer the most busy time of her work ([employer]).She continues to smoke at least 1ppd and [...] like to have a consult at the [facility] for peace of mind I am making [...] xrays xrays ordered pt to go to [facility] out patient.- xray report received after visit- [...] GI for further evaluationWe discussed elements/causes for Paresh is concerned she has DM- both parents [...] not wish to be seen upstairs at [facility] states current medication is working well. ER follow up Marianne is here t o follow up on recent ER visit at [facility] related to chest pains and abnormal EKG [...] and was normal.Transthorasic Cardiac Echocardiogram (CPT code: 58299) has been approved. Authorization # [id number]. Start date 07.28.22 through 09.26.22Pt also reports [...] to the police here in office today. Chest Pain The patient pres ents with [...] timesReports one panic attack while driving in [place]- as that is where her mother lives, [...] 38, LDL 112, and trigs 136Diet modifications [id number] okDeclines flu and covid 10 boosterRecent [...] stop smoking/vaping, there is a free online [place] smoking course offered through our local health department. You may call [phone] for more information. Related to Nicotine dependence, cigarettes, uncomplicated B-12 injection given in office today. Eat foods rich in B-12. Additional oral B12 replacement if indicated. Related to Vitamin B12 deficiency anemia, unspecified Aug-28-2023 Take rest. Drink ple nty of fluids. [...] stop smoking, there is a free online [place] smoking course offered through our local health department. You may call [phone] for more information. Related to Nicotine dependence, [...] been scheduled for 08/04/22 at 1:45 at [facility]/u in office here on 08/11/22 for results [...]
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
== END 2025-04-16 23:59 | disposition home or self-care (01) ==
LOC: RAD 16:47
PROVIDERS: PCP Nurse Practitioner Family; Visit Provider Orthopaedic Surgery
DX: M54.2 Cervicalgia (principal); M79.602 Pain in left arm; M77.12 Lateral epicondylitis, left elbow; R20.0 Anesthesia of skin
CPT/HCPCS: 72141